=== PATIENT | female | born 1930 | race Caucasian/White ===

== ENCOUNTER 2018-06-07 15:56 | Emergency (ER) | payer MEDICARE ==
[2018-06-07 16:13] VITALS: TEMP 100.1
[2018-06-07] MEDS ORDERED: NEOMYCIN-BACITRACIN-POLYMYXIN 0.9 GM UD TOP ONE (16:14)
[2018-06-07] MEDS ORDERED: CHLORHEXIDINE GLUCONATE 4 % 15 ML UD TOP ONE (16:14)
--- NOTE | 2018-06-07 17:23 | CT ---
PROCEDURE: Cervical Spine CLINICAL HISTORY: 87 years Female fall [place] [facility] , abrasion to the right forehead COMPARISON: None. TECHNIQUE: Contiguous axial images obtained through the cervical spine without IV contrast. Coronal and sagittal reformatted images obtained. This exam was performed according to our department optimization program which includes automated exposure control, adjustment of the mA and/or kv according to patient size and/or use of iterative reconstruction technique. FINDINGS: There is retrolisthesis of C5 on C6. Narrowing of the C4-5 C5-6 and C6-7 disc interspaces. Facet arthropathy at multiple levels. Generalized bulging of the disc at C6-7 with mild central canal stenosis. IMPRESSION: No acute cervical spinal fracture is identified. Multilevel degenerative change Electronically signed by: Mariama Martin MD 06/07/2018 5:17 PM CDT
--- NOTE | 2018-06-07 17:23 | CT ---
PROCEDURE: Head CLINICAL HISTORY: 87 years Female fall with abrasion of the right forehead COMPARISON: None. TECHNIQUE: Contiguous axial CT images obtained through the brain without IV contrast. This exam was performed according to our department optimization program which includes automated exposure control, adjustment of the mA and/or kv according to patient size and/or use of iterative reconstruction technique. FINDINGS: The ventricles and sulci are prominent consistent with atrophic changes. There are areas of previous infarct in the left basal ganglia gazra radiata and frontal region with compensatory enlargement of the left lateral ventricle. Motion artifact limits evaluation. Significant streak artifact is present in the posterior and middle cranial fossa which limits evaluation. Microvascular ischemic changes. No midline shift or mass effect. No mass lesions. No acute hemorrhage. Atherosclerotic calcifications. No fluid or significant mucosal thickening in the visualized paranasal sinuses. No depressed calvarial fractures. IMPRESSION: Exam is limited by significant patient motion. No acute intracranial abnormality is identified. Generalized atrophy with microvascular ischemic changes. Areas of previous infarct in the left MCA distribution Electronically signed by: Mariama Martin MD 06/07/2018 5:19 PM CDT
--- NOTE | 2018-06-07 17:23 | RAD ---
EXAM DESCRIPTION: Elbow,Right 2 Views CLINICAL HISTORY: 87 years ,[place] [facility] ab[place]asion to the right forehead COMPARISON: None. TECHNIQUE: RIGHT elbow, Three view FINDINGS: No acute fractures or dislocations are identified. No osseous destructive lesions. No evidence of joint effusion. Nonspecific bony density along the medial epicondyle likely chronic area of calcification. IMPRESSION: No acute fractures are identified. If symptoms persist, followup is recommended in 7-10 days. Electronically signed by: Mariama Martin MD 06/07/2018 5:19 PM CDT
[2018-06-07 17:29] VITALS: O2SAT 97
--- NOTE | 2018-06-07 17:32 | ED.PDOC ---
History of Present Illness - General Chief Complaint: Trauma Stated Complaint: s/p fall Time Seen by Provider: 06/07/18 15:59 Source: patient Exam Limitations: clinical condition - History of Present Illness Initial Comments: the patient is an 87-year-old femalethat has advanced dementia and was actually found on the floor the prison with a small laceration to the forehead and a small skin tear to her right elbow. The patient is chronically essentially unable to communicate. She is pleasantly demented. She does have chronic mild contractures. She has right-sided weakness greater than left sided weakness. There does not appear to be any pain with palpation of her extremities or her pelvis or her chest wall. No pain is obvious with movement or palpation of the neck. She has about a 1-1/2 cm abrasion to her right upper forehead. No evidence of bony crepitus. She is alert. She is interactive. Again she is very pleasantly demented. Timing/Duration: momentarily Severity: mild Improving Factors: nothing Worsening Factors: nothing Allergies/Adverse Reactions: Allergies NO KNOWN ALLERGY Allergy (Verified 06/07/18 16:13) Review of Systems - Review of Systems Review of Systems: 06/07/18 17:31 unable to obtain secondary to dementia Past Medical History (General) - Patient Medical History Hx Stroke: Yes Hx Cardiac Disorders: Yes - Atrial fib Hx Congestive Heart Failure: Yes Hx Diabetes: No Hx Gastroesophageal Reflux: Yes Surgical History: noncontributory - Vaccination History Hx Influenza Vaccination: Yes - 05/18/18 - Activities of Daily Living Prison/Assisted Living (if applicable):: [facility] Family Medical History - Family History Mother Family History: Unknown Living Status: Physical Exam - Physical Exam General Appearance: Alert, Comfortable, No apparent distress Eye Exam: bilateral normal Ears, Nose, Throat: hearing grossly normal, normal pharynx Neck: non-tender, supple Respiratory: lungs clear, normal breath sounds, no respiratory distress, no accessory muscle use Cardiovascular/Chest: normal peripheral pulses, no edema, other - regular rate Peripheral Pulses: radial,right: 2+, radial,left: 2+, dorsalis pedis,right: 2+, dorsalis pedis,left: 2+ Gastrointestinal/Abdominal: non tender, soft Rectal Exam: deferred Extremity: normal range of motion - she does have chronic contractures but no acute changes since the fall are obvious, non-tender, no pedal edema, normal capillary refill Neurologic: public health program manager II-XII nml as tested, alert, normal mood/affect - pleasantly demented Skin Exam: normal color - small skin abrasion to the right elbow and slightly larger abrasion to the right upper forehead Comments: Vital Signs - 24 hr 06/07/18 06/07/18 16:05 17:28 Temperature 100.1 F H Pulse Rate [ 100 H 50 L Left Brachial] Respiratory 20 20 Rate Blood Pressure 105/59 107/79 [Left Arm] O2 Sat by Pulse 94 L 97 Oximetry Progress - Progress Progress: 06/07/18 17:33 the patient is an 87-year-old female with advanced dementia that presents from the prison after a fall. she has a abrasion to her right forehead along with a scalp hematoma and a skin tear that is small to the right elbow. These have been cleaned. CT scan of the head and cervical spine as well as x-ray of the right elbow show no evidence of any acute pathology though there are multiple chronic changes present. physical exam reveals no evidence of other deformity or discomfort otherwise. Fall precautions should obviously be taken with this patient. She does need to have her mental status monitored by the prison staff for the next couple of days. a concussion is possible with this patient but is difficult to tell at this time. The patient will be discharged back to her prison. No significant injury otherwise found. Departure - Departure Clinical Impression: Fall at prison Qualifiers: Encounter type: initial encounter Qualified Code(s): W19.XXXA - Unspecified fall, initial encounter; Y92.129 - Unspecified place in prison as the place of occurrence of the external cause; Y92.129 - Unspecified place in prison as the place of occurrence of the external cause Scalp hematoma Qualifiers: Encounter type: initial encounter Qualified Code(s): S00.03XA - Contusion of scalp, initial encounter Disposition: Discharge to SNF Condition: Fair Departure Forms: ED Discharge - Pt. Copy, Patient Portal Self Enrollment Diet: regular diet Activity: increase activity as tolerated Referrals: CONCHITA FORMAN [Primary Care Provider] - 1-5 Days Additional Instructions: the patient is an 87-year-old female with advanced dementia that presents from the prison after a fall. she has a abrasion to her right forehead along with a scalp hematoma and a skin tear that is small to the right elbow. These have been cleaned. CT scan of the head and cervical spine as well as x-ray of the right elbow show no evidence of any acute pathology though there are multiple chronic changes present. physical exam reveals no evidence of other deformity or discomfort otherwise. Fall precautions should obviously be taken with this patient. She does need to have her mental status monitored by the prison staff for the next couple of days. a concussion is possible with this patient but is difficult to tell at this time. The patient will be discharged back to her prison. No significant injury otherwise found.
[2018-06-07 18:33] VITALS: BP 151/59
== END 2018-06-07 18:20 ==
LOC: ER 15:56
DX: S00.93XA Contusion of unspecified part of head, initial encounter (principal); S00.81XA Abrasion of other part of head, initial encounter; S51.001A Unspecified open wound of right elbow, initial encounter; F03.90 Unspecified dementia, unspecified severity, without behavioral disturbance, psychotic disturbance, mood disturbance, and anxiety; M47.812 Spondylosis without myelopathy or radiculopathy, cervical region; K21.9 Gastro-esophageal reflux disease without esophagitis; I48.91 Unspecified atrial fibrillation; I50.9 Heart failure, unspecified; Z86.73 Personal history of transient ischemic attack (TIA), and cerebral infarction without residual deficits; W19.XXXA Unspecified fall, initial encounter; Y92.129 Unspecified place in nursing home as the place of occurrence of the external cause

== ENCOUNTER 2018-06-27 07:40 | Inpatient (IN) | payer MEDICARE ==
[2018-06-27] MEDS ORDERED: CEFEPIME 1 GM in SODIUM CHLORIDE 0.9% 50ML 50 ML IVPB ONE (08:03)
--- NOTE | 2018-06-27 08:08 | ED.PDOC ---
History of Present Illness - General Chief Complaint: Respiratory Problem Stated Complaint: Low O2 sats - 70s Time Seen by Provider: 06/27/18 08:01 Source: patient, EMS, shelter records Exam Limitations: physical impairment - dementia - History of Present Illness Initial Comments: patient is a shelter patient he was found this morning to have oxygen levels in the 70s on room air. Patient does not normally require oxygen and has no pulmonary diagnoses that she requires medication or treatment for. Staff from the shelter did say she been sick for a couple of days running fever but is afebrile this morning. Patient states she just doesn't feel well and has been coughing but denies any swelling or chest pain. Patient does not have any other complaints but is not very verbal secondary to her dementia. Timing/Duration: unsure Severity: moderate Improving Factors: nothing Worsening Factors: nothing Allergies/Adverse Reactions: Allergies NO KNOWN ALLERGY Allergy (Verified 06/27/18 08:03) Review of Systems - Review of Systems Constitutional: States: chills, fever, malaise EENTM: States: nose congestion. Denies: eye pain, ear pain, nose pain, throat swelling Respiratory: States: cough, short of breath. Denies: wheezing Cardiology: States: no symptoms reported. Denies: chest pain, palpitations, syncope Gastrointestinal/Abdominal: States: no symptoms reported. Denies: abdominal pain, diarrhea, nausea, vomiting Musculoskeletal: States: no symptoms reported Skin: States: no symptoms reported Neurological: States: no symptoms reported Past Medical History (General) - Patient Medical History Hx Stroke: Yes Hx Cardiac Disorders: Yes - Atrial fib Hx Congestive Heart Failure: Yes Hx Diabetes: No Hx Gastroesophageal Reflux: Yes - Vaccination History Hx Influenza Vaccination: Yes - 05/18/18 Family Medical History - Family History Mother Family History: Unknown Living Status: Physical Exam - Physical Exam General Appearance: Emaciated, Frail Eye Exam: bilateral normal Ears, Nose, Throat: hearing grossly normal, normal ENT inspection, normal pharynx Neck: non-tender, full range of motion, supple, normal inspection Respiratory: lungs clear, no accessory muscle use, decreased breath sounds Cardiovascular/Chest: no edema, no gallop, no JVD, no murmur, tachycardia, irregularly irregular Peripheral Pulses: radial,right: 2+, radial,left: 2+ Gastrointestinal/Abdominal: normal bowel sounds, non tender, soft Extremity: non-tender Neurologic: alert Skin Exam: cyanosis Progress - Progress Progress: 06/27/18 09:59 patient with probable sepsis from pneumonia. Chest xray is negative but symptoms and lactic acid are concerning for early pneumonia. Have stated antibiotics here and have called and discussed with [employer] neurosurgeon Ziggy Santiago. He will admit - Results/Orders Results/Orders: 06/27/18 08:15 EKG STAT 06/27/18 09:22 BLOOD CULTURE Stat Laboratory Results WBC 9.1 K/mm3 (4.8-10.8) 06/27/18 09:22 RBC 4.04 M/mm3 (4.20-5.40) L 06/27/18 09:22 Hgb 12.4 gm/dL (12.0-16.0) 06/27/18 09:22 Hct 38.1 % (36.0-47.0) 06/27/18 09:22 MCV 94.5 fl (81.0-99.0) 06/27/18 09:22 MCH 30.6 pg (27.0-31.0) 06/27/18 09:22 MCHC 32.6 g/dL (33.0-37.0) L 06/27/18 09:22 RDW 16.2 % (11.5-14.5) H 06/27/18 09:22 Plt Count 443 K/mm3 (130-400) H 06/27/18 09:22 MPV 7.7 fl (7.40-10.4) 06/27/18 09:22 Absolute Neuts (auto) 7.10 K/uL (1.8-6.8) H 06/27/18 09:22 Absolute Lymphs (auto) 0.90 K/uL (1.0-3.4) L 06/27/18 09:22 Absolute Monos (auto) 1.00 K/uL (0.2-0.8) H 06/27/18 09:22 Absolute Eos (auto) 0.10 K/uL (0.0-0.4) 06/27/18 09:22 Absolute Basos (auto) 0.10 K/uL (0.0-0.1) 06/27/18 09:22 Neutrophils % 77.3 % (42.0-78.0) 06/27/18 09:22 Lymphocytes % 9.8 % (20.0-50.0) L 06/27/18 09:22 Monocytes % 10.9 % (2.0-9.0) H 06/27/18 09:22 Eosinophils % 1.4 % (1.0-5.0) 06/27/18 09:22 Basophils % 0.6 % (0.0-2.0) 06/27/18 09:22 PT 11.5 SECONDS (9.0-10.9) H 06/27/18 09:22 INR 1.15 (0.9-1.15) 06/27/18 09:22 PTT (SP) 27.0 SECONDS (21.8-31.6) 06/27/18 09:22 pCO2 31 mmHg (32-45) L 06/27/18 08:20 pO2 108 mmHg (83-108) 06/27/18 08:20 HCO3 24.8 mmol/L 06/27/18 08:20 ABG pH 7.520 (7.35-7.45) H 06/27/18 08:20 ABG O2 Saturation 99.3 % (95.0-99.0) H 06/27/18 08:20 ABG Base Excess 2.7 mmol/L 06/27/18 08:20 ABG Deoxyhemoglobin 0.7 % (0.0-5.0) 06/27/18 08:20 Oxyhemoglobin % 98.3 % (94.0-98.0) H 06/27/18 08:20 Carboxyhemoglobin % 0.6 % (0.5-1.5) 06/27/18 08:20 Methemoglobin % Sat 0.5 % (0.0-1.5) 06/27/18 08:20 Calc Total Hemoglobin 11.3 g/dL (12.0-16.0) L 06/27/18 08:20 Sodium 130 mmol/L (135-145) L 06/27/18 09:22 Potassium 4.1 mmol/L (3.6-5.0) 06/27/18 09:22 Chloride 93 mmol/L (101-111) L 06/27/18 09:22 Carbon Dioxide 26 mmol/L (21-31) 06/27/18 09:22 Anion Gap 15.1 (12-18) 06/27/18 09:22 BUN 24 mg/dL (7-18) H 06/27/18 09:22 Creatinine 0.83 mg/dL (0.6-1.3) 06/27/18 09: BUN/Creatinine Ratio 28.9 (10-20) H 06/27/18 09:22 Random Glucose 85 mg/dL (70-105) 06/27/18 09: Serum Osmolality 264.1 mOsm/L (275-295) L 06/27/18 09:22 Lactic Acid 2.3 mmol/L (0.5-2.2) H 06/27/18 09:22 Calcium 9.1 mg/dL (8.4-10.2) 06/27/18: Total Bilirubin 0.6 mg/dL (0.2-1.0) 06/27/18: AST 33 IU/L (10-42) 06/27/18: ALT 20 IU/L (10-60) 06/27/18 09:22 Alkaline Phosphatase 87 IU/L (42-121) 06/27/18 09:22 Creatine Kinase 31 IU/L (26-140) 06/27/18 09: CK-MB (CK-2) 1.3 ng/mL (0.0-4.4) 06/27/18 09: CK-MB (CK-2) % Not Reportable 06/27/18: Troponin I < 0.02 ng/mL (0.01-0.05) 06/27/18: B-Natriuretic Peptide 513.0 pg/ml (0-100) H* 06/27/18: Serum Total Protein 7.9 gm/dL (6.4-8.2) 06/27/18 09:22 Albumin 2.6 g/dl (3.2-5.5) L 06/27/18:22 Globulin 5.3 gm/dL (2.3-3.5) H 06/27/18 09:22 Albumin/Globulin Ratio 0.5 (1.1-1.9) L 06/27/18 09:22 chest xray negative acute process EKG atrial fib with rapid ventricular rate Departure - Departure Clinical Impression: Pneumonia Qualifiers: Pneumonia type: due to unspecified organism Laterality: unspecified laterality Lung location: unspecified part of lung Qualified Code(s): J18.9 - Pneumonia, unspecified organism Disposition: Admit Patient Condition: Fair Departure Forms: ED Discharge - Pt. Copy, Patient Portal Self Enrollment Diet: regular diet Referrals: CONCHITA FORMAN [Primary Care Provider] - 1-2 Weeks
--- NOTE | 2018-06-27 08:38 | RAD ---
PROCEDURE: XR CHEST 1 VIEW HISTORY: hypoxia COMPARISON: 06/26/2018 TECHNIQUE: Single projection of the chest was done. FINDINGS: Underlying changes of COPD are seen . There are no discrete airspace infiltrates, pneumothoraces or pleural effusions. The pulmonary vascularity is normal. The cardiomediastinal silhouette is unremarkable for patient's age and sex. IMPRESSION: There is no acute pleural-parenchymal process seen in the imaged lung soto. Location of Interpretation: Teleradiology Electronically signed by: Gilmar Ledbetter MD 06/27/2018 8:36 AM [facility] [employer] Workstation: [id number]
[2018-06-27] MEDS ORDERED: CEFEPIME 2 GM VIAL ONE (09:17)
[2018-06-27] MEDS ORDERED: SODIUM CHLORIDE 0.9% 50ML 50 ML ONE (09:18)
--- NOTE | 2018-06-27 11:00 | HP ---
SUPERVISING PHYSICIAN: Jack Avelar M.D. CHIEF COMPLAINT: Low O2 saturations. HISTORY OF PRESENT ILLNESS: Ms. Jane is an 87 year-old female patient that resides at [facility]. This morning, she was found by the assisted to be with low O2 saturation of less than 70 on room air. She is not normally on oxygen and has no significant history of pulmonary disease. It is noted that the patient is nonverbal and the majority of the history was obtained from E. R. record and assisted report. The assisted reports that the patient had been sick for a couple of days running fever and a cough, but had denied any chest pains. She was started on Levaquin yesterday. Today in the Emergency Department vital signs showed that she was febrile with a temperature of 100.2, pulse 138, blood pressure 109/40, respirations 18, satting 85% on room air. On nasal cannula, she went up to 93% . She does have a history of atrial fibrillation and is on a beta becky for rate control with no anticoagulant. Chest x-ray, single view chest, per radiology interpretation showed pulmonary vasculature to be within normal limits and no discrete airspace infiltrates or pleural effusions on the single view chest. Laboratory studies showed she had a white count that was within normal limits at 9,100 but she did have a left shift. Blood gas analysis showed a pH of 7.520, satting 99% on 4 liters nasal cannula with pO2 of 31, pCO2 of 31, pO2 108, bicarb 24.8. Chemistries showed a mild hyponatremia with sodium 130, creatinine 0.39, lactic acid was elevated at 2.3. Liver functions all showed to be within normal limits. Troponin was less than 0.02, BNP was elevated at 513. She does have a history of congestive heart failure but no echocardiogram is available for review at time of admission. Given the clinical findings of room air hypoxia and recent treatment for upper respiratory infection concerning for possible developing pneumonia likely hospital acquired as she does reside at a [facility] care facility, Dr. Deleon, E. R. physician, started her on treatment for pneumonia with Cefipime after blood cultures were completed. The patient is now going to be admitted to the Medical/Surgical floor for ongoing treatment of probable developing early pneumonia, hospital acquired, with the patient having failed to respond to outpatient treatment measures. She was admitted in stable condition. PAST MEDICAL HISTORY: 1. Previous stroke, residual effects including aphasia. 2. Chronic atrial fibrillation on beta becky for rate control but no chronic anticoagulation. 3. Chronic congestive heart failure likely diastolic with no current echocardiogram available for review at time of admission. 4. Gastroesophageal reflux disease. 5. Rheumatoid polyneuropathy with rheumatoid arthritis. 6. Osteoporosis. 7. History of hyperlipidemia. PAST SURGICAL HISTORY: Not available as the patient is nonverbal and no surgeries listed on assisted notes. HOME MEDICATIONS: Please see an updated list in the electronic medical records of an updated, verified list by nursing staff at time of admission awaiting verification from the assisted. ALLERGIES: NO KNOWN DRUG ALLERGIES. FAMILY HISTORY: SOCIAL HISTORY: REVIEW OF SYSTEMS: Limited to the patient's aphasia. CONSTITUTIONAL: She denied any chills, fever, malaise. HEENT: She is reported by the assisted to have some nasal congestion. The patient has not noted any ear pain, nose or throat problems. RESPIRATORY: As noted in history of present illness, shortness of breath, worsening cough, but denies any wheezing. CARDIOVASCULAR: The patient denies by head nod, chest pains, palpitations. No reported syncopal episodes. She does have a history of atrial fibrillation. GASTROINTESTINAL: No reported problems such as abdominal pains, diarrhea, nausea or vomiting. MUSCULOSKELETAL: She has chronic mild contractures of the upper and lower extremities. INTEGUMENT: No reported skin breakdown, rashes or sores. NEUROLOGIC: The patient is aphasic. Essentially non-ambulatory but no reported change in mental status per assisted. PHYSICAL EXAMINATION: VITAL SIGNS: Temperature 100.2, pulse 126, blood pressure 110/73, respirations 20, satting 92% on nasal cannula at 2 liters. Initially before placement on nasal cannula, she was satting 85% on room air. Admission weight 44.1 kg. GENERAL: The patient is very thin, emaciated. Appears to be somewhat dehydrated and frail, in no acute obvious distress. HEENT: Tympanic membranes were clear bilaterally. Oropharynx was pink with dry mucosal membranes. NECK: Supple, non-tender with full range of motion. No jugular venous distention. CHEST: Lung sounds were fairly clear with no obvious wheezing or rhonchi, slightly diminished towards the bases. CARDIOVASCULAR: Irregular rate and rhythm showing atrial fibrillation on bedside monitor at 126. No murmurs, gallops, or rubs noted. ABDOMEN: Bowel sounds are present, non-tender, soft. EXTREMITIES: Slight contracture of upper and lower extremities, but she does move all extremities ad yanelis. NEUROLOGIC: She is alert. Full neurological exam is difficult to obtain due to the patient's aphasia and inability to follow full instructions on neurological assessment, but no obvious gross motor deficits noted. Facial features were symmetrical. Extraocular movements are intact. were within normal limits. There is no notable nystagmus. SKIN: Warm, pink and dry with no obvious lesions, rashes, sores or decubitus. LABORATORY: CBC showed white count 9,100, hemoglobin 12.4, hematocrit 38.1. RBC indices showed normocytic/normochromic presentation. Platelet count 443, 000. Differential does show a left shift but no bands. Coagulation studies showed PT and PTT to be within normal limits. Blood gas analysis showed a respiratory alkalosis with pH of 7.52, pCO2 of 31, pO2 of 108, bicarb 24.8 with base excess 2.7, satting 99% on 4 liters nasal cannula. Chemistries showed low sodium at 130, potassium 4.1, BUN 24, creatinine 0.83, glucose 85. Lactic acid was elevated at 2.3 with calcium 9.3. Liver functions showing all to be within normal limits. Troponin was less than 0.02. BNP was elevated at 513. Urinalysis was pending. MICROBIOLOGY: Blood culture is pending. Sputum culture is pending. Influenza swab by PCR for A and B was negative. RADIOLOGY: Chest x-ray single view chest on admission through the E. R. per radiology interpretation showed no acute pleural or parenchymal processes in the imaged lung soto of a single view chest. ASSESSMENT: 1. Sepsis secondary to probable developing early pneumonia with the patient having an elevated lactic acid and fever on admission with tachycardia and low O2 saturations, and elevated lactic acid. 2. Hypoxia probably due to early pneumonia more likely healthcare acquired with the patient having been a resident of long-term care facility and previously being on recent antibiotics having failed to respond to outpatient treatment plan now requiring initiation of parenteral antibiotics and more aggressive antibiotic regimen. 3. Chronic congestive heart failure likely diastolic with no echocardiogram to review at time of admission with the patient showing an elevated BNP probably falsely elevated due to dehydration. 4. Electrolyte imbalance to include hyponatremia probably chronic in nature due to the patient being on chronic diuretics to include Hydrochlorothiazide and Spironolactone, and exacerbated by developing pneumonia. 5. Moderate dehydration. 6. Respiratory alkalosis likely due to aggressive administration of oxygen prior to hospitalization with the patient showing some compensation. 7. Urinary tract infection with cultures pending. 8. Chronic atrial fibrillation on beta becky with rapid ventricular response on admission likely due to acute illness with the patient not being on any chronic anticoagulation but showing to be hemodynamically stable. 9. Gastroesophageal reflux disease. 10. History of polyneuropathy with rheumatoid arthritis. 11. History of osteoporosis. 12. History of hyperlipidemia. PLAN: The patient is going to be admitted to the Medical/Surgical floor for ongoing treatment of her hypoxia and sepsis with initiation of antibiotics to include Cefepime, Zyvox and azithromycin with concerns for possible healthcare acquired pneumonia as she does reside at a long-term care facility. Will treat her urinary tract infection with continuation of the same antibiotics including the Cefepime which should cover well, awaiting final culture results to target antibiotic therapy. Will await sputum cultures. She will be on DVT prophylaxis as per protocol. Will resume her home medications once those have been updated and verified as appropriate. Will anticipate her length of stay to be at least 2 to 3 days. Until clinically stable and can transition back to outpatient management, will continue to monitor and treat as needed. #[id number] [facility]
[2018-06-27] MEDS ORDERED: ALBUTEROL SULFATE 2.5 MG/3 ML VIAL NEB PRN (12:21)
[2018-06-27] MEDS ORDERED: SODIUM CHLORIDE 0.9% (FLUSH) 10 ML SYG IV PRN (12:21)
[2018-06-27] MEDS: IV SET AND CAP CHANGE INJ INJ SCH (12:30)
[2018-06-27] MEDS ORDERED: SODIUM CHLORIDE 0.9% 250ML 250 ML ONE (13:03)
[2018-06-27] MEDS ORDERED: AZITHROMYCIN IV 500 MG VIAL IVPB ONE (13:04)
[2018-06-27] MEDS: AZITHROMYCIN IV 500 MG in SODIUM CHLORIDE 0.9% 250ML 250 ML IVPB SCH (13:32)
[2018-06-27] MEDS ORDERED: SODIUM CHLORIDE 0.9% 500ML 500 ML IVS ONE (13:57)
[2018-06-27] MEDS ORDERED: SODIUM CHLORIDE 0.9% 500ML 500 ML ONE (14:25)
[2018-06-27] MEDS ORDERED: LINEZOLID IV 300 ML IVPB ONE (14:26)
[2018-06-27] MEDS ORDERED: NON-FORMULARY MEDICATION 1 EA MIS (Bisoprolol Fumarate [Bisoprolol Fumarate] 5 MG) PO SCH (14:45)
[2018-06-27] MEDS: METOPROLOL SUCCINATE XL 50 MG TAB PO SCH (15:26)
[2018-06-27] MEDS: ACETAMINOPHEN 325 MG TAB PO PRN (15:28)
[2018-06-27] MEDS: ENOXAPARIN SODIUM 30 MG/0.3 ML SYG SUBCU SCH (15:30)
[2018-06-27] MEDS: LINEZOLID IV 600 MG in PREMIX BAG 1 BAG IVPB SCH (15:58)
[2018-06-27] MEDS: LEVALBUTEROL NEBS 1.25 MG/3 ML VIAL NEB SCH (16:10)
[2018-06-27] MEDS ORDERED: SODIUM CHLORIDE 0.9% 1000ML 1,000 ML IVS ONE (17:52)
[2018-06-27] MEDS ORDERED: PANTOPRAZOLE SODIUM IV 40 MG VIAL ONE (19:26)
[2018-06-27] MEDS: PRAVASTATIN SODIUM 20 MG TAB PO SCH (20:38)
[2018-06-27] MEDS: KCL 20 MEQ/NS 1,000 ML IVS PRN (22:10)
[2018-06-28] MEDS: LEVALBUTEROL NEBS 1.25 MG/3 ML VIAL NEB SCH ×4 (00:15→23:50)
[2018-06-28] MEDS ORDERED: LINEZOLID IV 300 ML IVPB ONE ×3 (04:05→19:50)
[2018-06-28] MEDS: LINEZOLID IV 600 MG in PREMIX BAG 1 BAG IVPB SCH ×2 (04:07→16:36)
[2018-06-28] MEDS: PANTOPRAZOLE SODIUM IV 40 MG VIAL IV SCH (06:15)
[2018-06-28] MEDS ORDERED: SODIUM CHLORIDE 0.9% 250ML 250 ML ONE (07:16)
[2018-06-28] MEDS ORDERED: SODIUM CHL 0.9% 50ML MIN-BAG+ 50 ML IVPB ONE (07:17)
[2018-06-28] MEDS ORDERED: CEFEPIME 2 GM VIAL ONE (07:17)
[2018-06-28] MEDS ORDERED: AZITHROMYCIN IV 500 MG VIAL IVPB ONE (07:18)
--- NOTE | 2018-06-28 07:47 | RAD ---
EXAM DESCRIPTION: AP view of the chest CLINICAL HISTORY:87 years Female, Pneumonia Comparison: June 27, 2018 8:23 AM FINDINGS: Minimal left basilar subsegmental atelectasis, new from prior study. Diffuse prominence of the pulmonary interstitium likely related to chronic lung disease. No pleural abnormalities. The cardiac silhouette is normal size. IMPRESSION: Left basilar subsegmental atelectasis. Electronically signed by: Magdaleno Wall DO 06/28/2018 7:45 AM [facility]
[2018-06-28] MEDS: ONDANSETRON INJ 4 MG/2 ML VIAL IV PRN (07:52)
[2018-06-28] MEDS: CEFEPIME 2 GM in SODIUM CHL 0.9% 50ML MIN-BAG+ 50 ML IVPB SCH (08:50)
[2018-06-28] MEDS: SPIRONOLACTONE 25 MG TAB PO SCH (08:51)
[2018-06-28] MEDS: FUROSEMIDE 40 MG TAB PO SCH (08:51)
[2018-06-28] MEDS: ASPIRIN (ENTERIC COATED) 81 MG TAB PO SCH (08:51)
[2018-06-28] MEDS: METOPROLOL SUCCINATE XL 50 MG TAB PO SCH (08:51)
[2018-06-28] MEDS: ENOXAPARIN SODIUM 30 MG/0.3 ML SYG SUBCU SCH (08:51)
[2018-06-28] MEDS: AZITHROMYCIN IV 500 MG in SODIUM CHLORIDE 0.9% 250ML 250 ML IVPB SCH (12:47)
[2018-06-28] MEDS: KCL 20 MEQ/NS 1,000 ML IVS PRN (14:51)
--- NOTE | 2018-06-28 17:34 | PN ---
DATE: 06/28/18 SUPERVISING PHYSICIAN: Jack Avelar M.D. SUBJECTIVE: The patient is lying in bed. She nods her head yes and no, not always appropriately but she does not speak. Nursing has reported that she had a good night last night. She has not been in any distress today. OBJECTIVE: VITAL SIGNS: She is afebrile, heart rate 100, blood pressure 118/71 , respiratory rate 17, O2 sat has been as low at 88% on 2 liters nasal cannula, it is now 91%. RESPIRATORY: Diminished at the bases but essentially clear to auscultation bilaterally. CARDIAC: Regular rate and rhythm. At times she is tachycardic. GASTROINTESTINAL: Abdomen is soft, nondistended. Bowel sounds are positive. NEUROLOGIC: She is awake and alert. She is aphasic, does not verbally respond to any questions. LABORATORY: WBCs are 6.9 with hemoglobin 10.8 and hematocrit 37.7. There is a slight left shift on differential. Sodium is slightly low at 134. Calcium is 8.3 but the remainder of her electrolytes are basically within normal limits. Preliminary blood cultures show no growth after 24 hours. Urine culture is pending. Chest x-ray shows left basilar subsegmental atelectasis. All other labs and films have been reviewed via the EMR. ASSESSMENT: 1. Sepsis secondary to early pneumonia, most likely healthcare acquired, with the patient having an elevated lactic acid and fever on admission as well as tachycardia and low O2 saturations. 2. Hypoxia probably due to the pneumonia, most likely healthcare acquired. The patient has been a resident of long-term care facility and was previously on recent antibiotics having failed to respond to outpatient treatment. She now is on parenteral antibiotics with more aggressive antibiotic regimen. 3. Chronic congestive heart failure likely diastolic in etiology with no echocardiogram to review. 4. Electrolyte imbalance to include hyponatremia probably chronic in nature being on chronic diuretics. 5. Moderate dehydration. 6. Respiratory alkalosis. 7. Urinary tract infection. PLAN: We will continue present supportive care. Continue her present antibiotics until cultures are available. I will hold off on any lab or chest x -ray tomorrow and will repeat those on Friday. Continue with aggressive pulmonary hygiene. Will continue to monitor closely and follow as needed. [facility][id number] [facility]
[2018-06-28] MEDS: PRAVASTATIN SODIUM 20 MG TAB PO SCH (21:25)
[2018-06-29] MEDS: LINEZOLID IV 600 MG in PREMIX BAG 1 BAG IVPB SCH ×2 (04:19→16:37)
[2018-06-29] MEDS: PANTOPRAZOLE SODIUM IV 40 MG VIAL IV SCH (06:28)
[2018-06-29] MEDS: KCL 20 MEQ/NS 1,000 ML IVS PRN ×2 (06:35→19:31)
[2018-06-29] MEDS: LEVALBUTEROL NEBS 1.25 MG/3 ML VIAL NEB SCH ×2 (08:24→16:32)
[2018-06-29] MEDS ORDERED: SODIUM CHL 0.9% 50ML MIN-BAG+ 50 ML IVPB ONE (09:05)
[2018-06-29] MEDS ORDERED: CEFEPIME 2 GM VIAL ONE (09:06)
[2018-06-29] MEDS ORDERED: DEX 5% W/NACL 0.45% 1000ML 1,000 ML IVS PRN (09:43)
[2018-06-29] MEDS: ASPIRIN (ENTERIC COATED) 81 MG TAB PO SCH (09:50)
[2018-06-29] MEDS: SPIRONOLACTONE 25 MG TAB PO SCH (09:50)
[2018-06-29] MEDS: ENOXAPARIN SODIUM 30 MG/0.3 ML SYG SUBCU SCH (09:50)
[2018-06-29] MEDS: FUROSEMIDE 40 MG TAB PO SCH (09:50)
[2018-06-29] MEDS: METOPROLOL SUCCINATE XL 50 MG TAB PO SCH (09:51)
[2018-06-29] MEDS: CEFEPIME 2 GM in SODIUM CHL 0.9% 50ML MIN-BAG+ 50 ML IVPB SCH (09:59)
--- NOTE | 2018-06-29 13:37 | PN ---
SUPERVISING PHYSICIAN: Jack Avelar M.D. DATE: 06/29/18 SUBJECTIVE: The patient is lying in bed. She is very pleasant, but she is nonverbal. She does shake her head yes and no to some simple questioning. Nursing has reported that other than her heart rate being up in the 100s to 1- teens, she has had no problems overnight. OBJECTIVE: VITAL SIGNS: Afebrile. Heart rate 113. Blood pressure 103/65. Respiratory rate 16. O2 saturation 94% on 1 liter nasal cannula. RESPIRATORY: Diminished at the bases with a few scattered rhonchi, otherwise clear to auscultation. CARDIAC: Regular rate and rhythm. At times, she is slightly tachycardic. GASTROINTESTINAL: Abdomen is soft, nondistended. Bowel sounds are positive. NEUROLOGIC: She is awake and alert, but nonverbal. LABORATORY: Preliminary blood cultures show no growth after 48 hours. All other labs and films have been reviewed via the EMR. ASSESSMENT: 1. Sepsis secondary to early pneumonia, most likely healthcare acquired, with the patient having an elevated lactic acid and fever on admission as well as tachycardia and low O2 saturations. 2. Hypoxia probably due to the pneumonia, most likely healthcare acquired. The patient has been a resident of [facility] and was previously on recent antibiotics having failed to respond to outpatient treatment. She now is on parenteral antibiotics with more aggressive antibiotic regimen. 3. Chronic congestive heart failure likely diastolic in etiology with no echocardiogram to review. 4. Electrolyte imbalance to include hyponatremia probably chronic in nature being on chronic diuretics. 5. Moderate dehydration. 6. Respiratory alkalosis. 7. Urinary tract infection. PLAN: We will continue present supportive care. She is slightly improving over the last 24 hours. Since her heart rate is elevated, I will give her an additional one liter of fluids and continue her previous antibiotics. We are awaiting culture results. I ordered lab and chest x-ray for in the morning. We will continue pulmonary hygiene. Hopefully she can be discharged tomorrow to [facility]. #[id number] [facility]
[2018-06-29] MEDS ORDERED: AZITHROMYCIN IV 500 MG VIAL IVPB ONE (13:52)
[2018-06-29] MEDS ORDERED: SODIUM CHLORIDE 0.9% 250ML 250 ML ONE (13:52)
[2018-06-29] MEDS: AZITHROMYCIN IV 500 MG in SODIUM CHLORIDE 0.9% 250ML 250 ML IVPB SCH (14:16)
[2018-06-29] MEDS ORDERED: LINEZOLID IV 300 ML IVPB ONE ×2 (17:33→20:13)
[2018-06-29] MEDS ORDERED: PANTOPRAZOLE SODIUM TAB 40 MG PO ONE (20:14)
[2018-06-29] MEDS: PRAVASTATIN SODIUM 20 MG TAB PO SCH (20:43)
[2018-06-30] MEDS: LEVALBUTEROL NEBS 1.25 MG/3 ML VIAL NEB SCH ×3 (00:05→16:30)
[2018-06-30] MEDS: ACETAMINOPHEN 325 MG TAB PO PRN (02:42)
[2018-06-30] MEDS: LINEZOLID IV 600 MG in PREMIX BAG 1 BAG IVPB SCH ×2 (03:44→16:27)
[2018-06-30] MEDS: PANTOPRAZOLE SODIUM TAB 40 MG PO SCH (06:37)
--- NOTE | 2018-06-30 07:03 | RAD ---
EXAM DESCRIPTION: Chest,1 View CLINICAL HISTORY:87 years Female, pna Comparison: June 28, 2018 FINDINGS: Improved aeration left lung base with minimal bibasilar opacities No pleural effusion. No pneumothorax. Cardiac and mediastinal silhouette is unremarkable. No acute osseous abnormality. Soft tissues are unremarkable. IMPRESSION: Minimal bibasilar opacities representing atelectasis or pneumonia, improved from prior. Electronically signed by: Surya Rangel MD 06/30/2018 7:01 AM [facility]
[2018-06-30] MEDS ORDERED: SODIUM CHL 0.9% 50ML MIN-BAG+ 50 ML IVPB ONE (07:38)
[2018-06-30] MEDS ORDERED: CEFEPIME 2 GM VIAL ONE (07:39)
[2018-06-30] MEDS ORDERED: MAGNESIUM SULFATE PREMIX 2GM 2 GM in PREMIX BAG 1 BAG IVPB ONE (08:18)
[2018-06-30] MEDS ORDERED: MAGNESIUM SULFATE PREMIX 2GM 50 ML IVPB ONE (08:52)
[2018-06-30] MEDS: FUROSEMIDE 40 MG TAB PO SCH (09:07)
[2018-06-30] MEDS: SPIRONOLACTONE 25 MG TAB PO SCH (09:07)
[2018-06-30] MEDS: ASPIRIN (ENTERIC COATED) 81 MG TAB PO SCH (09:08)
[2018-06-30] MEDS: ENOXAPARIN SODIUM 30 MG/0.3 ML SYG SUBCU SCH (09:08)
[2018-06-30] MEDS: METOPROLOL SUCCINATE XL 50 MG TAB PO SCH (09:08)
[2018-06-30] MEDS: MEGESTROL ACETATE 40 MG TAB PO SCH (09:21)
[2018-06-30] MEDS: CEFEPIME 2 GM in SODIUM CHL 0.9% 50ML MIN-BAG+ 50 ML IVPB SCH (10:01)
[2018-06-30] MEDS: KCL 20 MEQ/NS 1,000 ML IVS PRN (12:12)
[2018-06-30] MEDS: IV SET AND CAP CHANGE INJ INJ SCH (12:32)
[2018-06-30] MEDS: AZITHROMYCIN IV 500 MG in SODIUM CHLORIDE 0.9% 250ML 250 ML IVPB SCH (12:58)
[2018-06-30] MEDS ORDERED: SODIUM CHLORIDE 0.9% 250ML 250 ML ONE (13:34)
[2018-06-30] MEDS ORDERED: AZITHROMYCIN IV 500 MG VIAL IVPB ONE (13:34)
[2018-06-30] MEDS ORDERED: LINEZOLID IV 300 ML IVPB ONE (16:26)
--- NOTE | 2018-06-30 19:21 | PN ---
DATE: 06/30/18 SUPERVISING PHYSICIAN: Jack Avelar M.D. SUBJECTIVE: The patient is sitting in her hospital bed. She is having a breathing treatment. She is more verbal today than yesterday. She answers some simple yes/no questions. It is reported from nursing that she is doing some better but still coughing quite a bit. OBJECTIVE: VITAL SIGNS: She is afebrile, heart rate 98, it has been as high as 114. Blood pressure 97/59, respiratory rate 20, O2 sat 96% on 1 liter nasal cannula. RESPIRATORY: Diminished breath sounds throughout. Diffuse scattered rhonchi. CARDIAC: Regular to tachycardic rate, irregular rhythm. GASTROINTESTINAL: Abdomen is soft, nondistended, non-tender. Bowel sounds are positive. NEUROLOGIC: She is awake and alert. LABORATORY: WBCs are stable at .6 with hemoglobin 10.2, hematocrit 31.1. Sodium is slightly low at 130, potassium 3.7, chloride 96, glucose 133, calcium is slightly low at 8, magnesium is low at 1.7. Anaerobic blood culture shows gram positive cocci in pairs and clusters. Chest x-ray shows minimal bibasilar opacities representing atelectasis or pneumonia that is improved from prior. All other labs and films have been reviewed via the EMR. ASSESSMENT: 1. Sepsis secondary to early pneumonia, most likely healthcare acquired, with the patient having an elevated lactic acid and fever on admission as well as tachycardia and low O2 saturations. 2. Hypoxia probably due to the pneumonia, most likely healthcare acquired. The patient has been a resident of [facility] facility and was previously on recent antibiotics having failed to respond to outpatient treatment. She now is on parenteral antibiotics with more aggressive antibiotic regimen. 3. Chronic congestive heart failure likely diastolic in etiology with no echocardiogram to review. 4. Electrolyte imbalance to include hyponatremia probably chronic in nature being on chronic diuretics. 5. Moderate dehydration. 6. Respiratory alkalosis. 7. Urinary tract infection. PLAN: We will continue present supportive care. Will continue to wait for the final blood cultures to guide antibiotic therapy. I have given her some magnesium replacement. Will recheck her lab in the morning. I have also started some Megace as the patient is not eating. I have also saline locked her IV. Will continue to monitor closely and follow as needed. Hopefully we can discharge tomorrow back to [facility] with close followup with Dr. Vazquez. [facility][id number] [facility]
[2018-06-30] MEDS: PRAVASTATIN SODIUM 20 MG TAB PO SCH (20:46)
[2018-07-01] MEDS: LEVALBUTEROL NEBS 1.25 MG/3 ML VIAL NEB SCH ×4 (00:06→23:30)
[2018-07-01] MEDS ORDERED: LINEZOLID IV 300 ML IVPB ONE ×2 (03:24→16:08)
[2018-07-01] MEDS: LINEZOLID IV 600 MG in PREMIX BAG 1 BAG IVPB SCH ×2 (04:11→16:21)
[2018-07-01] MEDS: KCL 20 MEQ/NS 1,000 ML IVS PRN (05:02)
[2018-07-01] MEDS: PANTOPRAZOLE SODIUM TAB 40 MG PO SCH (06:14)
[2018-07-01] MEDS ORDERED: SODIUM CHL 0.9% 50ML MIN-BAG+ 50 ML IVPB ONE (08:29)
[2018-07-01] MEDS ORDERED: CEFEPIME 2 GM VIAL ONE (08:30)
[2018-07-01] MEDS: ASPIRIN (ENTERIC COATED) 81 MG TAB PO SCH (08:37)
[2018-07-01] MEDS: MEGESTROL ACETATE 40 MG TAB PO SCH (08:38)
[2018-07-01] MEDS: METOPROLOL SUCCINATE XL 50 MG TAB PO SCH (08:38)
[2018-07-01] MEDS: FUROSEMIDE 40 MG TAB PO SCH (08:38)
[2018-07-01] MEDS: SPIRONOLACTONE 25 MG TAB PO SCH (08:38)
[2018-07-01] MEDS: ENOXAPARIN SODIUM 30 MG/0.3 ML SYG SUBCU SCH (08:39)
[2018-07-01] MEDS: CEFEPIME 2 GM in SODIUM CHL 0.9% 50ML MIN-BAG+ 50 ML IVPB SCH (08:40)
[2018-07-01] MEDS ORDERED: FUROSEMIDE INJ 20 MG/2 ML VIAL IV ONE (09:03)
[2018-07-01] MEDS: AZITHROMYCIN IV 500 MG in SODIUM CHLORIDE 0.9% 250ML 250 ML IVPB SCH (12:23)
[2018-07-01] MEDS ORDERED: FLUCONAZOLE 150 MG TAB PO ONE (12:57)
[2018-07-01] MEDS: BIFIDOBACTERIUM INFANTIS 4 MG CAP PO SCH (13:54)
[2018-07-01] MEDS: PRAVASTATIN SODIUM 20 MG TAB PO SCH (20:59)
[2018-07-01] MEDS: ACETAMINOPHEN 325 MG TAB PO PRN (22:23)
[2018-07-02] MEDS: KCL 20 MEQ/NS 1,000 ML IVS PRN (00:29)
[2018-07-02] MEDS ORDERED: LINEZOLID IV 300 ML IVPB ONE ×3 (03:05→19:33)
[2018-07-02] MEDS: LINEZOLID IV 600 MG in PREMIX BAG 1 BAG IVPB SCH ×2 (03:33→16:30)
[2018-07-02] MEDS: PANTOPRAZOLE SODIUM TAB 40 MG PO SCH (06:07)
[2018-07-02] MEDS: LEVALBUTEROL NEBS 1.25 MG/3 ML VIAL NEB SCH ×2 (07:56→16:38)
--- NOTE | 2018-07-02 08:43 | PN ---
SUPERVISING PHYSICIAN: Jack Avelar MD DATE: 07/01/18 SUBJECTIVE: The patient is resting in the bed. She does not verbalize, but she shakes her yes and no and notes this morning that she is not feeling very well. She denies any specific pains, but she has had some nausea apparently and has been afebrile. OBJECTIVE: VITAL SIGNS: Temperature 97.6. Pulse 72. Blood pressure 104/73. Respirations 16. Saturation 94% on nasal cannula at rest on 1 liter. I&Os this morning showed positive balance of 1660 with 3660 in, 1700 out. She has had 2 bowel movements and weight is slightly up from yesterday to 43.8 kg. GENERAL: The patient is resting in bed. She appears to be in no acute distress. She is alert. CHEST: Lung sounds are diminished towards the bases. No wheezing or rhonchi heard. HEART: Slightly irregular rate and rhythm showing a rate between 90 and 110. ABDOMEN: Soft, nontender. Positive bowel sounds. NEUROLOGIC: Alert and oriented times three. LABORATORY: White count stable at 5.5. Hemoglobin 10.4, hematocrit 32.1, platelet count 347,000. Differential is now without a left shift. Chemistries show a persistent hyponatremia at 128 with potassium 3.6, BUN 8, creatinine 0.53. Blood sugar was 88 with serum osmolality 254, calcium 7.8, low albumin 2.6 corrected to 8.1. Magnesium today is 1.8. MICROBIOLOGY: Blood cultures pending final culture result show a gram positive cocci with one anaerobic bottle positive. Urine culture showed no growth at 36 hours, final. Stool culture pending. C. difficile toxin A and B was negative. ASSESSMENT: 1. Gram positive bacteremia with likely source being pneumonia and possibly underlying urinary tract infection though urine culture showed no growth at 36 hours. 2. Sepsis secondary to #1 and pneumonia, likely healthcare acquired, with the patient having an elevated lactic acid and fever on admission, improving with treatment with parenteral antibiotic and fluids. 3. Hypoxia on admission due to pneumonia, likely healthcare acquired as the patient resides in a [facility] facility and and has failed recent outpatient treatment plan. She continues to be on parenteral antibiotics with aggressive antibiotic therapy, awaiting final culture results for further treatment of gram positive bacteremia. 4. Chronic atrial fibrillation with controlled ventricular rate. 5. Chronic congestive heart failure, likely diastolic with etiology unknown with the patient not having a current echocardiogram on admission. 6. Persistent hyponatremia, probably chronic in nature with the patient on chronic diuretics. 7. Questionable urinary tract infection on admission, though urine cultures came back with no growth at 36 hours with the patient having history of urinary tract infection within the last month and bacteremia having been treated in the hospital at [place], [place], awaiting those medical records for further review. PLAN: At this point, we will continue antibiotic coverage with Zyvox, cefepime and azithromycin awaiting final culture results at which time we will target antibiotic therapy as appropriate. At some point, she will need to have an echocardiogram done to further rule out endocarditis as the source of bacteremia. She will need continued treatment for at least minimum of 14 days IV antibiotics based on culture results. Once those results are available and sensitivity, I will touch base with Dr. Martinez to plan for further outpatient management. She does reside at [facility] and sees Dr. Vazquez as primary care provider. I did discuss with her grandson the need for possible [facility] therapy either in an long-term acute care facility which he feels the power of admitted attorneys will certainly refuse and option of [facility] either here or in [place]. I suggested treating in [facility] in [place] is warranted as the patient is cared for by Dr. 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 Until she can transition to outpatient management based on culture results, we will continue to monitor and treat as needed. #[id number] [facility]
[2018-07-02] MEDS ORDERED: SODIUM CHL 0.9% 50ML MIN-BAG+ 50 ML IVPB ONE (08:51)
[2018-07-02] MEDS ORDERED: CEFEPIME 2 GM VIAL ONE (08:52)
[2018-07-02] MEDS: CEFEPIME 2 GM in SODIUM CHL 0.9% 50ML MIN-BAG+ 50 ML IVPB SCH (08:55)
[2018-07-02] MEDS: ENOXAPARIN SODIUM 30 MG/0.3 ML SYG SUBCU SCH (08:57)
[2018-07-02] MEDS: METOPROLOL SUCCINATE XL 50 MG TAB PO SCH (08:58)
[2018-07-02] MEDS: FUROSEMIDE 40 MG TAB PO SCH (08:58)
[2018-07-02] MEDS: SPIRONOLACTONE 25 MG TAB PO SCH (08:59)
[2018-07-02] MEDS: BIFIDOBACTERIUM INFANTIS 4 MG CAP PO SCH (08:59)
[2018-07-02] MEDS: ASPIRIN (ENTERIC COATED) 81 MG TAB PO SCH (08:59)
[2018-07-02] MEDS: MEGESTROL ACETATE 40 MG TAB PO SCH (08:59)
[2018-07-02] MEDS ORDERED: SODIUM CHLORIDE 0.9% 250ML 250 ML ONE (13:53)
[2018-07-02] MEDS ORDERED: AZITHROMYCIN IV 500 MG VIAL IVPB ONE (13:54)
[2018-07-02] MEDS: AZITHROMYCIN IV 500 MG in SODIUM CHLORIDE 0.9% 250ML 250 ML IVPB SCH (15:59)
[2018-07-02] MEDS: PRAVASTATIN SODIUM 20 MG TAB PO SCH (20:12)
--- NOTE | 2018-07-02 21:06 | PN ---
DATE: 07/02/18 SUPERVISING PHYSICIAN: Jack Avelar M.D. SUBJECTIVE: The patient is much more active this morning. She is actually smiling and laughing with nursing staff. She shakes her head yes or no that she is feeling a little bit better today. OBJECTIVE: VITAL SIGNS: Temperature 98.6, pulse 114, blood pressure 121/74, respirations 16, satting 98% on room air. I's and O's show a negative balance of 182 with 8 in, 2049 out. Weight is 44.4 kg. GENERAL: The patient is very interactive this morning. She appears to be in no acute distress. She is alert. CHEST: Lung sounds remain diminished towards the bases but no wheezing or rhonchi is noted. HEART: Slightly irregular rate and rhythm with no appreciable murmurs, gallops, or rubs. Rate is between 90 to 110. ABDOMEN: Soft, non-tender. Positive bowel sounds. EXTREMITIES: She is alert and oriented to location with yes or no answers. LABORATORY: White count is shown to be stable. Yesterday it was 5,500. Chemistries today show an improving sodium that is 133, potassium is down just a little bit to 3.4, BUN 10, creatinine 0.71. Osmolality is up to 266, calcium 8.4 corrected from 7.9 with albumin correction. MICROBIOLOGY: Blood culture still remains in preliminary status that shows coagulation negative Staph that is sensitive to all but erythromycin and Bactrim , showing to be sensitive to Augmentin, Cefazolin, clindamycin, vancomycin, Rifampin, Tetracycline and Oxacillin. Stool cultures are pending. RADIOLOGY: No additional radiographic studies today. ASSESSMENT: 1. Coagulation negative Staphylococcus bacteremia likely sour of pneumonia with possible underlying urinary tract infection although urine culture showed no growth at 36 hours with the patient showing good response with parenteral antibiotics. 2. Sepsis secondary to #1 likely healthcare acquired, with the patient having an elevated lactic acid and fever on admission showing improvement and continuing improvement with parenteral antibiotics. 3. Chronic atrial fibrillation with controlled ventricular rate not on any chronic anticoagulation. 4. Chronic congestive heart failure, likely diastolic with etiology unknown with the patient not having a current echocardiogram on admission showing to be without any exacerbation. 5. Persistent hyponatremia, probably chronic in nature with the patient on chronic diuretics as well as underlying pneumonia exacerbation, but showing improvement with fluids and diuretics. 6. Questionable urinary tract infection on admission, although cultures came back with no growth at 36 hours with a history of urinary tract infection with the last being within the last month and the patient having bacteremia which has been treated in the hospital at [place], [place] with those records not currently available for review. PLAN: I have contacted Infectious Disease, Dr. Martinez, but I have not heard back from her, in efforts to decide on discharge planning. Given that she has some good clinical improvement after 5 days on antibiotic therapy with azithromycin, Cefepime and Linezolid with current culture results, will discontinue the azithromycin as she has finished a course of that and Linezolid , and keep her on Cefepime awaiting consultation with Dr. Martinez. We did encourage her to eat as much as possible, which she is not wanting to eat at all. She will drink coffee but does not want to eat. Ultimately hopefully be able to discharge the patient in the next 24 to 48 hours depending on ultimate plan of discharge continuation of treatment, more likely to go to [facility] in [place] where her primary care provider practices, Dr. Vazquez. She will need an echocardiogram more likely and continuation of antibiotics at least for 2 weeks until the echocardiogram is shown to be negative, of course still awaiting final decision from Dr. Martinez. Until she can transition to outpatient management will continue to monitor and treat as needed. #[id number] [facility]
[2018-07-03] MEDS: LEVALBUTEROL NEBS 1.25 MG/3 ML VIAL NEB SCH ×3 (00:32→16:34)
[2018-07-03] MEDS: PANTOPRAZOLE SODIUM TAB 40 MG PO SCH (05:37)
--- NOTE | 2018-07-03 06:44 | RAD ---
EXAM DESCRIPTION: Chest,1 View CLINICAL HISTORY:87 years Female, pneumonia Comparison: June 30, 2018 FINDINGS: Small bilateral pleural effusions with bibasilar opacities representing atelectasis or pneumonia, slightly worsened from prior. Cardiac silhouette is unchanged. Electronically signed by: Surya Rangel MD 07/03/2018 6:42 AM [facility]
[2018-07-03] MEDS ORDERED: SODIUM CHL 0.9% 50ML MIN-BAG+ 50 ML IVPB ONE (07:37)
[2018-07-03] MEDS ORDERED: CEFEPIME 2 GM VIAL ONE (07:38)
[2018-07-03] MEDS: CEFEPIME 2 GM in SODIUM CHL 0.9% 50ML MIN-BAG+ 50 ML IVPB SCH (08:56)
[2018-07-03] MEDS: SPIRONOLACTONE 25 MG TAB PO SCH (08:59)
[2018-07-03] MEDS: BIFIDOBACTERIUM INFANTIS 4 MG CAP PO SCH (08:59)
[2018-07-03] MEDS: ENOXAPARIN SODIUM 30 MG/0.3 ML SYG SUBCU SCH (08:59)
[2018-07-03] MEDS: FUROSEMIDE 40 MG TAB PO SCH (08:59)
[2018-07-03] MEDS: METOPROLOL SUCCINATE XL 50 MG TAB PO SCH (09:00)
[2018-07-03] MEDS: MEGESTROL ACETATE 40 MG TAB PO SCH (09:00)
[2018-07-03] MEDS: ASPIRIN (ENTERIC COATED) 81 MG TAB PO SCH (09:00)
[2018-07-03] MEDS: SODIUM CHLORIDE 0.9% 500ML 500 ML IVS ONE ×2 (10:17→12:22)
[2018-07-03] MEDS ORDERED: levoFLOXacin 500 MG TAB PO ONE (11:13)
[2018-07-03] MEDS ORDERED: levoFLOXacin 500 MG TAB ONE (11:20)
[2018-07-03] MEDS ORDERED: DOXYCYCLINE HYCLATE CAP 100 MG CAP ONE (11:20)
[2018-07-03] MEDS: DOXYCYCLINE HYCLATE CAP 100 MG CAP PO SCH ×2 (11:21→20:45)
[2018-07-03] MEDS ORDERED: SODIUM CHLORIDE 0.9% 500ML 500 ML IVS ONE (11:48)
[2018-07-03] MEDS: DEX 5% W/NACL 0.9% 1000ML 1,000 ML IVS PRN (12:14)
[2018-07-03] MEDS: ONDANSETRON INJ 4 MG/2 ML VIAL IV PRN (12:18)
[2018-07-03] MEDS ORDERED: METOPROLOL TARTRATE 25 MG TAB PO ONE ×2 (13:06→19:59)
[2018-07-03] MEDS: IV SET AND CAP CHANGE INJ INJ SCH (13:18)
--- NOTE | 2018-07-03 17:16 | PN ---
DATE: SUPERVISING PHYSICIAN: Jack Avelar M.D. SUBJECTIVE: The patient has been having increasing ventricular response with her atrial fibrillation. This morning she required some critical intervention with cardiac medications to include Cardizem and close monitoring to get better control of her ventricular rate. With the increasing rate she was having some nausea which could be associated with the newly started doxycycline. She is also reporting that she just was not feeling well, but her blood pressure was staying fairly stable. She was given 1 dose of Cardizem 10 mg and had good response, and was continued on a beta becky orally. I also did talk with Infectious Disease specialist, Dr. Martinez, and she noted that the patient can continue with outpatient management of her infection with oral doxycycline and Levaquin, and no need for followup blood cultures or echocardiogram due to the fact that the organism in the blood culture is likely a contaminant and the patient has no hardware or pacemaker in place. She was started on doxycycline and Levaquin. She has been afebrile. OBJECTIVE: VITAL SIGNS: Temperature 98.0, pulse 147 with blood pressure 111/ 71. She was satting 94% on room air. After 10 mg of Cardizem her blood pressure remained stable and her heart rate decreased to high 90s to approximately 110. I's and O's show a negative balance of 116 with 784 in, 900 out. Weight is up slightly to 44.6 kg. GENERAL: The patient appears a little anxious but in no acute distress. She is actually verbalizing a little and fully cooperative. CHEST: Lung sounds are diminished towards the bases. There is no obvious rhonchi or wheezing noted. HEART: Irregular rate and rhythm with rapid ventricular response noted on bedside monitor and 12-lead at 140s to 150s. ABDOMEN: Soft, non-tender. Positive bowel sounds. EXTREMITIES: No clubbing, cyanosis or edema. She moves all extremities ad yanelis. NEUROLOGIC: She is alert but does not verbalize fully to fully assess for orientation, only to current location questions and dates. There is no notable neuro focal or motor deficits. Facial features remain symmetrical. LABORATORY: Chemistries show persistent sodium at 128 with potassium 4.5, BUN 12, creatinine 0.67, calcium 7.8 corrected to 8.4 with low albumin. MICROBIOLOGY: One set of blood cultures finalized with no growth. Anaerobic bottle showed coag negative Staph. Please see that sensitivity for full report. Stool cultures pending. Urine culture showed no growth in 36 hours. Clostridium Difficile toxin A and B were negative for toxin and antigen. RADIOLOGY: Repeat chest x-ray this morning of single view chest per radiology interpretation showed small bilateral pleural effusions with bibasilar opacities representing atelectasis or pneumonia slightly worsened from previous and cardiac silhouette is unchanged. ASSESSMENT: 1. Coagulation negative Staphylococcus bacteremia, likely source more of a contaminant but possibly pneumonia versus underlying urinary tract infection, but urine cultures show no growth at 36 hours with the patient showing good response with parenteral antibiotics and now being transitioned to p.o. medication to include doxycycline and Levaquin, both renally dosed. 2. Sepsis secondary to #1 likely healthcare acquired as the patient resides at a care home care facility. She had a lactic acid that was elevated along with febrile on admission continuing to show improvement with parenteral antibiotics and now transitioned to p.o. antibiotics. 3. Chronic atrial fibrillation with acute exacerbation with a rapid ventricular response requiring acute intervention with Cardizem and initiation of additional beta becky with the patient now having good control and showing to be hemodynamically stable with the patient not having been on any chronic anticoagulation prior to admission. 4. Chronic congestive heart failure, likely diastolic with likely combination diastolic and systolic, uncertain etiology with the patient having no echocardiogram on admission and showing some slight exacerbation with rapid ventricular response but improving with treatment. 5. Chronic hyponatremia from Spironolactone and Lasix administration and exacerbated somewhat by the underlying pneumonia, continuing to show improvement and being stable with fluids. 6. Cystitis with culture results showing no growth at 36 hours in a patient with bacteremia and treated previously in the hospital for again what was reported to be bacteremia and urinary tract infection with those records not available currently and the patient currently showing to be improving with parenteral antibiotics and able to transition to p.o. medication. PLAN: I did discuss the case with Dr. Martinez and given the fact that the patient has no hardware or pacemaker, and that the isolate of the single bottle was more likely a skin contaminant given that it was a coag negative Staph, more likely Staph epidermidis. She noted that the patient could be transitioned to p.o. medication to include doxycycline and Levaquin for a total treatment course of 10 days and with no need to have additional blood cultures or echocardiogram. I have discontinued all of her current parenteral antibiotics and now started on doxorubicin and renally dosed Levaquin 500 to continue Levaquin at 250 mg daily. I have encouraged the patient to eat to prevent any nausea associated with the doxycycline. I anticipate hopefully being able to discharge tomorrow if the patient's cardiac situation stays stable and her rate control is controlled with additional beta blockade given the acute rapid ventricular response requiring intervention today. I will anticipate I will change her beta becky from extended release metoprolol to metoprolol tartrate 25 mg b.i.d. as I think this is the ultimate reason for her exacerbation of the atrial fibrillation and rapid ventricular response. Again, if she shows to be stable through the night, will discharge back to [facility] tomorrow with close followup to be with her primary care provider, Dr. Vazquez. Until then, will continue to monitor and treat as needed. #[id number] [facility]
[2018-07-03] MEDS: PRAVASTATIN SODIUM 20 MG TAB PO SCH (20:45)
[2018-07-04] MEDS: DEX 5% W/NACL 0.9% 1000ML 1,000 ML IVS PRN ×2 (00:03→13:12)
[2018-07-04] MEDS: LEVALBUTEROL NEBS 1.25 MG/3 ML VIAL NEB SCH ×4 (00:18→23:37)
[2018-07-04] MEDS: PANTOPRAZOLE SODIUM TAB 40 MG PO SCH (06:14)
--- NOTE | 2018-07-04 07:19 | RAD ---
EXAM DESCRIPTION: Chest,1 View CLINICAL HISTORY: pneumonia COMPARISON: 07/03/2018 FINDINGS: Cardiac silhouette is unchanged. There is again consolidation at each lung base with small bilateral pleural effusions. Upper lobe edema has mildly improved. IMPRESSION: Bilateral consolidations. Improving aeration of the upper lungs. Electronically signed by: Wei Myles 07/04/2018 7:18 AM [facility]
[2018-07-04] MEDS ORDERED: METOPROLOL TARTRATE 25 MG TAB PO SCH (07:30)
[2018-07-04] MEDS: ASPIRIN (ENTERIC COATED) 81 MG TAB PO SCH (09:10)
[2018-07-04] MEDS: levoFLOXacin 500 MG TAB PO SCH (09:10)
[2018-07-04] MEDS: DOXYCYCLINE HYCLATE CAP 100 MG CAP PO SCH ×2 (09:10→20:49)
[2018-07-04] MEDS: FUROSEMIDE 40 MG TAB PO SCH (09:10)
[2018-07-04] MEDS: BIFIDOBACTERIUM INFANTIS 4 MG CAP PO SCH (09:10)
[2018-07-04] MEDS: MEGESTROL ACETATE 40 MG TAB PO SCH (09:10)
[2018-07-04] MEDS: SPIRONOLACTONE 25 MG TAB PO SCH (09:10)
[2018-07-04] MEDS: ENOXAPARIN SODIUM 30 MG/0.3 ML SYG SUBCU SCH (09:11)
[2018-07-04] MEDS ORDERED: METOPROLOL TARTRATE 25 MG TAB PO ONE (10:48)
--- NOTE | 2018-07-04 15:28 | PN ---
DATE: 07/04/18 SUPERVISING PHYSICIAN: Jack Avelar M.D. SUBJECTIVE: The patient appears to be doing a little bit better this morning, although her heart rate is once again starting to climb up into the 120s. Her metoprolol was changed to b.i.d., but apparently it is not working as well as anticipated. She has been transitioned to her p.o. medications. She has been afebrile overnight. She has had no nausea or vomiting. OBJECTIVE: VITAL SIGNS: Temperature 99.1, pulse 121, blood pressure 130/81, respirations 20, satting 98% on nasal cannula at rest. I's and O's show a positive balance of 169 with 1944 in, 1775 out. She has had 1 bowel movement. Weight is 44.7 kg. GENERAL: The patient is resting comfortably. She appears to be in no acute distress. She shakes her head to yes and no questions. CHEST : Lungs sounds are diminished towards the bases but no obvious rhonchi, wheezing or rales noted today. HEART: Irregular rate and rhythm with continued rapid ventricular response at times into the 120s. ABDOMEN: Soft, non-tender. Positive bowel sounds. EXTREMITIES: Without any clubbing, cyanosis or edema. NEUROLOGIC: She is alert but is unable to answer questions as she will not verbalize, but answers yes or no questions with head nod. LABORATORY: Chemistries show sodium 131, potassium 3.8, BUN 12, creatinine 0.76. AST is slightly elevated at 49. All other liver functions show to be within normal limits. MICROBIOLOGY: Stool culture is pending. One set of blood cultures finalized with no growth. Anaerobic bottle showed coag negative Staph. Please see that sensitivity for full report. Stool cultures pending. Urine culture showed no growth in 36 hours. Clostridium Difficile toxin A and B were negative for toxin and antigen. RADIOLOGY: Repeat chest x-ray this morning per radiology interpretation of single view chest shows bilateral consolidations, improving aeration of upper lungs. ASSESSMENT: 1. Coagulation negative Staphylococcus bacteremia, likely a contamination but with possible pneumonia versus underlying urinary tract infection and urine cultures showing no growth at 36 hours. The patient continues to show good response to parenteral antibiotics and was transitioned to p.o. medication and continues to show improvement. 2. Sepsis secondary to #1. 3. Chronic atrial fibrillation with acute exacerbation with a rapid ventricular response requiring Cardizem and again readjusting of medication regimen with the patient having not been on any prior anticoagulation. 4. Chronic congestive heart failure, likely a combination of diastolic and systolic with no echocardiogram available at the time of admission with the patient having left exacerbation due to rapid ventricular response from atrial fibrillation but showing ongoing improvement. 5. Chronic hyponatremia from Spironolactone and Lasix showing to be stable. 6. Cystitis although negative culture results at 36 hours with the patient having a history of previously having a urinary tract infection resulting in bacteremia with previous hospitalization in [place] with no records available during this hospitalization with the patient now transitioned to p.o. medication. PLAN: Will go ahead and increase her metoprolol to 50 mg b.i.d. after a dose of 10 mg Cardizem to get better control of her rate. Will observe this overnight and hopefully they will discharge tomorrow if she stays stable. She will continue with treatment for the coag negative Staph bacteremia will oral doxycycline and Levaquin that have been renally dosed for a total of 10 day course treatment which will be including hospitalization. Again, hopefully be able to discharge to [facility] tomorrow if she stays stable in regards to her atrial fibrillation and RVR. Until then will continue to monitor and treat as appropriately needed. [facility][id number] [facility]
[2018-07-04] MEDS: METOPROLOL TARTRATE 50 MG TAB PO SCH (17:20)
[2018-07-04] MEDS: ACETAMINOPHEN 325 MG TAB PO PRN (18:53)
[2018-07-04] MEDS: PRAVASTATIN SODIUM 20 MG TAB PO SCH (20:49)
[2018-07-05] MEDS: DEX 5% W/NACL 0.9% 1000ML 1,000 ML IVS PRN (01:45)
[2018-07-05] MEDS: PANTOPRAZOLE SODIUM TAB 40 MG PO SCH (06:13)
[2018-07-05 06:59] VITALS: O2SAT 97
[2018-07-05] MEDS: METOPROLOL TARTRATE 50 MG TAB PO SCH (07:44)
[2018-07-05] MEDS: LEVALBUTEROL NEBS 1.25 MG/3 ML VIAL NEB SCH (07:51)
[2018-07-05] MEDS: DOXYCYCLINE HYCLATE CAP 100 MG CAP PO SCH (08:55)
[2018-07-05] MEDS: SPIRONOLACTONE 25 MG TAB PO SCH (08:55)
[2018-07-05] MEDS: FUROSEMIDE 40 MG TAB PO SCH (08:55)
[2018-07-05] MEDS: BIFIDOBACTERIUM INFANTIS 4 MG CAP PO SCH (08:55)
[2018-07-05] MEDS: ENOXAPARIN SODIUM 30 MG/0.3 ML SYG SUBCU SCH (08:55)
[2018-07-05] MEDS: MEGESTROL ACETATE 40 MG TAB PO SCH (08:55)
[2018-07-05] MEDS: levoFLOXacin 500 MG TAB PO SCH (08:55)
[2018-07-05] MEDS: ASPIRIN (ENTERIC COATED) 81 MG TAB PO SCH (08:55)
[2018-07-05 10:00] VITALS: BP 110/73; TEMP 98
--- NOTE | 2018-07-14 10:31 | DS ---
SUPERVISING PHYSICIAN: Jack Avelar MD ADMISSION DIAGNOSIS: 1. Sepsis secondary to probable developing early pneumonia with the patient having an elevated lactic acid and fever on admission with tachycardia and low O2 saturations, and elevated lactic acid. 2. Hypoxia probably due to early pneumonia more likely healthcare acquired with the patient having been a resident of [facility] and previously being on recent antibiotics having failed to respond to outpatient treatment plan now requiring initiation of parenteral antibiotics and more aggressive antibiotic regimen. 3. Chronic congestive heart failure likely diastolic with no echocardiogram to review at time of admission with the patient showing an elevated BNP probably falsely elevated due to dehydration. 4. Electrolyte imbalance to include hyponatremia probably chronic in nature due to the patient being on chronic diuretics to include Hydrochlorothiazide and Spironolactone, and exacerbated by developing pneumonia. 5. Moderate dehydration. 6. Respiratory alkalosis likely due to aggressive administration of oxygen prior to hospitalization with the patient showing some compensation. 7. Urinary tract infection with cultures pending. 8. Chronic atrial fibrillation on beta becky with rapid ventricular response on admission likely due to acute illness with the patient not being on any chronic anticoagulation but showing to be hemodynamically stable. 9. Gastroesophageal reflux disease. 10. History of polyneuropathy with rheumatoid arthritis. 11. History of osteoporosis. 12. History of hyperlipidemia. DISCHARGE DIAGNOSIS: 1. Coagulation negative Staphylococcus bacteremia, possible contamination, but unable to fully rule out pneumonia versus urinary tract infection with urine cultures showing no growth at 36 hours. The patient showed good response to parenteral antibiotics and was transitioned to p.o. medication and continued to show improvement prior to discharge. 2. Sepsis secondary to #1, improving with antibiotic therapy. 3. Chronic atrial fibrillation with initial acute exacerbation with a rapid ventricular response requiring Cardizem and again readjusting of medication regimen with the patient having not been on any prior anticoagulation, showing controlled ventricular rate prior to discharge. 4. Chronic congestive heart failure, likely a combination of diastolic and systolic with no echocardiogram available at the time of admission with the patient having exacerbation due to rapid ventricular response from atrial fibrillation but showing ongoing improvement with medication adjustment. 5. Chronic hyponatremia due to spironolactone and Lasix, stable. 6. Chronic cystitis with culture results negative at 36 hours with the patient having a previous urinary tract infection with bacteremia noted with previous hospitalization in [place] within the last 2 months, but no records available during hospitalization with the patient at this point transitioned to p.o. medication, showing improvement. REASON FOR HOSPITALIZATION: Ms. Jane is an 87-year-old female patient that resides at [facility]. This morning, she was found by the [facility] to be with low O2 saturation of less than 70 on room air. She is not normally on oxygen and has no significant history of pulmonary disease. It is noted that the patient is nonverbal and the majority of the history was obtained from [facility] record and [facility] report. The [facility] reports that the patient had been sick for a couple of days running fever and a cough, but had denied any chest pains. She was started on Levaquin yesterday. Today in the Emergency Department vital signs showed that she was febrile with a temperature of 100.2, pulse 138, blood pressure 109/40, respirations 18, satting 85% on room air. On nasal cannula, she went up to 93% . She does have a history of atrial fibrillation and is on a beta becky for rate control with no anticoagulant. Chest x-ray, single view chest, per radiology interpretation showed pulmonary vasculature to be within normal limits and no discrete airspace infiltrates or pleural effusions on the single view chest. Laboratory studies showed she had a white count that was within normal limits at 9,100 but she did have a left shift. Blood gas analysis showed a pH of 7.520, satting 99% on 4 liters nasal cannula with pO2 of 31, pCO2 of 31, pO2 108, bicarb 24.8. Chemistries showed a mild hyponatremia with sodium 130, creatinine 0.39, lactic acid was elevated at 2.3. Liver functions all showed to be within normal limits. Troponin was less than 0.02, BNP was elevated at 513. She does have a history of congestive heart failure but no echocardiogram is available for review at time of admission. Given the clinical findings of room air hypoxia and recent treatment for upper respiratory infection concerning for possible developing pneumonia likely hospital acquired as she does reside at a [facility], Dr. Deleon, [facility] physician, started her on treatment for pneumonia with cefepime after blood cultures were completed. The patient is now going to be admitted to the Medical/Surgical floor for ongoing treatment of probable developing early pneumonia, hospital acquired, with the patient having failed to respond to outpatient treatment measures. She was admitted in stable condition. LABORATORY: White count on admission was 9,100. At discharge, it was 5,500. Hemoglobin and hematocrit were stable at 10.4 and 32.1, respectively, with platelet count 347,000. Differential did show a mild left shift that resolved prior to discharge. Coagulation studies showed PT 11.5, PT-T 27.0. Blood gas analysis showed pH 7.52 initially with PCO2 31, PO2 108, bicarb 24.8, saturation 99% on 2 liters nasal cannula. Chemistries on admission showed hyponatremia of 130. At discharge, it had improved to 131 and stable. Electrolytes within normal limits at discharge as well as on admission with BUN 24 at admission and at discharge normalized to 12. Creatinine 0.83 on admission and at discharge, 0.76. Liver functions all within normal limits. She had an elevated lactic acid initially on admission at 2.3, but after fluids , decreased to 1.8. She did have low magnesium of 1.7, improved to 1.8 after treatment. BNP elevated at 513. Urinalysis on admission showed 15 ketones, moderate amount of blood, large leukocyte esterase. Microscopic showed RBCs screwed by WBCs with too numerous to count WBCs and 2+ bacteria. MICROBIOLOGY: C. difficile toxin A and B that was negative for antigen and toxin. Stool culture showed normal enteric alvin. Blood cultures showed no growth at 5 days incubation on second set of blood cultures. First set blood cultures showed gram positive cocci in pairs with clusters showing a coagulation negative Staphylococcus showing sensitive to vancomycin, but resistant to Bactrim and sensitive to clindamycin, cefazolin and penicillins. Influenza A and B swab by PCR was negative for A and B. RADIOLOGY: Chest x-ray in the Emergency Department prior to admission per radiologic interpretation showed no acute pleural parenchymal processes seen in imaged soto. She had multiple x-rays throughout hospitalization. Final x- ray on 07/04/18 per radiologic interpretation of single view chest showed bilateral consolidations, improving aeration of her lungs. EKG in the Emergency Room showed atrial fibrillation with rapid ventricular response at 133. HOSPITAL COURSE: Ms. Jane was admitted on 06/27/18 and discharged on . She was initiated on treatment for sepsis with pneumonia and underlying urinary tract infection initially treated with cefepime, Zyvox, azithromycin as she does reside at a long-term care facility. She did show good response to treatment, however, she had a blood culture that was positive for coagulation Staphylococcus and was transitioned to antibiotic therapy according to the sensitivity report. She did have an episode of rapid ventricular response on her atrial fibrillation which was treated with Cardizem and after modification of her Toprol to include 25 mg b.i.d., she showed better control of her rate with no complications. After talking with infectious disease specialist, Dr. Martinez, based on the fact the patient did not have any hardware or pacemaker implanted, she was transitioned for treatment of coagulation negative Staphylococcus with oral doxycycline and Levaquin and was found to be clinically well enough to discharge to continue with outpatient treatment back to [facility] for a total of 10 day treatment course. PLAN: Ms. Jane was discharged on 07/05/18 with instructions to have close clinical followup with Dr. Vazquez. Dr. Vazquez was supposed to be notified of the patient's discharge and recent hospitalization and need for followup. She was to resume her medications per the electronic medical record. They were to encourage meals and snacks and a nutritional consultation warranted. The patient was taking very little oral intake and refusing to eat. She was encouraged again to have multiple small meals and snacks if possible. Diet was as noted above. Activity per physical therapy. NEW PRESCRIPTIONS AT DISCHARGE: 1. Albuterol nebulizers 2.5 mg q.4h. as needed. 2. Align 4 mg daily. 3. Doxycycline 100 mg twice daily for 10 days. 4. Xopenex 1.25 mg q.8h. as needed for breathing treatments. 5. Levaquin 250 mg daily. 6. Lopressor 50 mg twice daily. 7. Zofran 4 mg q.4h. as needed for nausea. CONDITION AT DISCHARGE: Stable. DISPOSITION: The patient was discharged back to [facility]. #[id number] MTDD
== END 2018-07-05 12:58 | DRG 871 ==
LOC: ER 07:40 → MS 10:58
PROVIDERS: ADMIT Nurse Practitioner Family; ATTEND Nurse Practitioner Family
DX: A41.2 Sepsis due to unspecified staphylococcus (principal); E41 Nutritional marasmus; J18.9 Pneumonia, unspecified organism; E87.2 Acidosis; I50.42 Chronic combined systolic (congestive) and diastolic (congestive) heart failure; E87.1 Hypo-osmolality and hyponatremia; E87.3 Alkalosis; N30.20 Other chronic cystitis without hematuria; I69.320 Aphasia following cerebral infarction; I48.2 Chronic atrial fibrillation; K21.9 Gastro-esophageal reflux disease without esophagitis; M05.50 Rheumatoid polyneuropathy with rheumatoid arthritis of unspecified site; M81.0 Age-related osteoporosis without current pathological fracture; E78.5 Hyperlipidemia, unspecified; M24.50 Contracture, unspecified joint; E86.0 Dehydration

== ENCOUNTER 2018-07-15 12:10 | Emergency (ER) | payer MEDICARE ==
--- NOTE | 2018-07-15 12:37 | RAD ---
EXAM DESCRIPTION: Chest,1 View CLINICAL HISTORY: 87 years Female, hypoxia COMPARISON: Previous study July 04, 2018 TECHNIQUE: AP portable chest. FINDINGS: Heart size is large with normal pulmonary vascularity. No consolidating infiltrate. Multiple densities overlying the right shoulder, left supraclavicular region and chest are thought to be external to the patient as with custom jewelry. No pulmonary mass or worrisome nodule. No pneumothorax or pleural effusion. Bones are unremarkable. IMPRESSION: Large heart without congestive failure. Electronically signed by: Yair Martinez MD 07/15/2018 12:36 PM WET TRIMMER
[2018-07-15] MEDS ORDERED: PIPERACILLIN/TAZOBACTAM 2.25 GM in SODIUM CHLORIDE 0.9% 50ML 50 ML IVPB ONE (13:21)
--- NOTE | 2018-07-15 13:52 | CT ---
EXAM DESCRIPTION: Head: Computed Tomography. CLINICAL HISTORY: altered LOC ? Facial droop COMPARISON: CT scan of the head without contrast 06/07/2018. TECHNIQUE: Non-helical axial scans through the skull and brain, at 2 x 20 mm intervals, non-contrast. Coronal and sagittal 2.0 mm reconstructions. Total Exam DLP: 752.48 mGy-cm. This exam was performed according to our departmental dose-optimization program which includes automated exposure control, adjustment of the mA and/or kV according to patient size and/or use of iterative reconstruction technique; to reduce radiation dose to as low as reasonably achievable (ALARA). FINDINGS: Study was limited due to patient decreased mental status and inability to hold head in optimal position for scanning. No hemorrhage, no mass-effect, and no midline shift. Large region of decreased periventricular white matter density abutting the frontal horn of the left lateral ventricle with dilation of the frontal horn. Also low-density in the left basal ganglia and internal capsule. No abnormal radiodense material in the brain parenchyma. Vascular calcifications anterior and posterior circulation; physiologic calcifications in the pineal gland and choroid plexus. No effacement or displacement of the ventricles, CSF spaces, or subdural spaces. Mild prominence of these spaces, more prominent in the left frontal lobe.. No extra axial fluid collection or hemorrhage. No gross abnormalities of the bony calvarium. Included paranasal sinuses and mastoid air cells are well - aerated. Soft tissue density in the base of the left maxillary antrum. IMPRESSION: 1. No hemorrhage, no mass effect, no midline shift. 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 No extra-axial hemorrhage. 2. CT scans are insensitive for detecting small CVAs in the first 24 hours after onset. Evaluation of the brain stem is also limited. If symptoms persist, consider NON-EMERGENT MRI scan of the brain with diffusion imaging. Electronically signed by: Wei Brand MD 07/15/2018 1:51 PM MECHANICS SUPERVISOR
--- NOTE | 2018-07-15 13:56 | ED.PDOC ---
History of Present Illness - General Chief Complaint: Respiratory Problem Stated Complaint: Sent for evaluation of low O2 sat Time Seen by Provider: 07/15/18 12:18 Source: patient Exam Limitations: clinical condition, physical impairment - History of Present Illness Initial Comments: patient is a prison patient he was found slumped over with oxygen saturations in the 50s. Patient was given a breathing treatment at the prison but failed to respond and subsequently EMS was called. On arrival EMS gave her a nonrebreather and then switched to nasal cannula as her oxygen levels improved dramatically very quickly. Patient normally is only minimally verbal but she is not responding to EMS nor to staff here at the hospital. assisted did note what they thought was a left facial droop that was new for the patient although she does have a remote history of having a stroke with some deficit on that side. Patient at this time will occasionally sit up and does respond with withdrawal to painand will open her eyes spontaneously but for the most part is lying quietly and not responding to questions. Patient was recently hospitalized for pneumonia 2 weeks ago. Timing/Duration: 1/2 hour Severity: severe Activities at Onset: rest Possible Cause: no prior episodes Improving Factors: medication - oxygen given and O2 responded well Worsening Factors: nothing Associated Symptoms: denies symptoms Respiratory Risk Factors: no cause identified Allergies/Adverse Reactions: Allergies NO KNOWN ALLERGY Allergy (Verified 06/27/18 08:03) Home Medications: Ambulatory Orders Acetaminophen [Tylenol] 650 mg PO Q4HR PRN 06/27/18 Aspirin [Aspirin Adult Low Dose] 81 mg PO DAILY 06/27/18 Bisoprolol Fumarate 5 mg PO DAILY 06/27/18 Calcium Carbonate [Caltrate 600] 1,500 mg PO DAILY 06/27/18 Cholecalciferol [Vitamin D3] 1,000 unit PO DAILY 06/27/18 Esomeprazole Magnesium 20 mg PO DAILY 06/27/18 Ferrous Sulfate [Feosol Tab] 325 mg PO DAILY 06/27/18 Furosemide 20 mg PO DAILY 06/27/18 Multiple Vitamin [Ocuvite] 1 ea PO DAILY 06/27/18 Multiple Vitamins W/ Minerals [Ocuvite Lutein] 2 cap PO DAILY 06/27/18 Pravastatin Sodium 10 mg PO BEDTIME 06/27/18 Spironolactone 25 mg PO DAILY 06/27/18 Albuterol Sulfate Nebs [Proventil Nebs] 2.5 mg NEB Q4H PRN vial 07/05/18 Bifidobacterium Infantis [Align] 4 mg PO DAILY cap 07/05/18 Doxycycline Hyclate [Vibramycin] 100 mg PO BID 10 Days cap 07/05/18 Levalbuterol Nebs [Xopenex NEBS] 1.25 mg NEB RTQ8 vial 07/05/18 Metoprolol Tartrate [Lopressor] 50 mg PO BID 60 Days tab 07/05/18 Ondansetron Inj [Zofran Inj] 4 mg IV Q6H PRN vial 07/05/18 levoFLOXacin [Levaquin] 250 mg PO Q24H 10 Days tab 07/05/18 Review of Systems - Review of Systems Review of Systems: 07/15/18 13:56 unable to evaluate secondary to clinical condition Past Medical History (General) - Patient Medical History Hx Seizures: No Hx Stroke: Yes Hx Asthma: No Hx of COPD: - Chronic pulmonary edema Hx Cardiac Disorders: Yes - A fib Hx Congestive Heart Failure: Yes Hx Pacemaker: No Hx Hypertension: No Hx Diabetes: No Hx Gastroesophageal Reflux: Yes Hx MRSA: No - Vaccination History Hx Influenza Vaccination: - unknown Hx Pneumococcal Vaccination: - unknown - Social History Hx Tobacco Use: No Hx Alcohol Use: No Hx Substance Use: No Hx Physical Abuse: No Hx Emotional Abuse: No - Activities of Daily Living Care Home/Assisted Living (if applicable):: [facility] Family Medical History - Family History Mother Family History: Unknown Living Status: Physical Exam - Physical Exam General Appearance: Frail, No apparent distress Eyes, Ears, Nose, Throat Exam: PERRL/EOMI, TMs normal, pharynx normal, other - slight left facial droop Neck: non-tender, full range of motion, supple, normal inspection Respiratory: chest non-tender, lungs clear, normal breath sounds, no respiratory distress, no accessory muscle use Cardiovascular/Chest: tachycardia - 90s, irregularly irregular Peripheral Pulses: radial,right: 2+, radial,left: 2+ Gastrointestinal/Abdominal: normal bowel sounds, non tender, soft Extremity: non-tender, normal inspection, no pedal edema Neurologic: other - ppatient unable to comply with neurological requests is moving both arms spontaneously as well as both lower extremities Skin Exam: normal color Lymphatic: no adenopathy Progress - Progress Progress: spoke at length with daughter Tram Hector. pER DAUGHTER PATIENT HAS HAD A VERY POOR QUALITY OF LIFE FOR THE PAST SEVERAL MONTHS AND HAS NOT BEEN INTERACTIVE WITH THEM FOR SOME TIME. sHE'LL LONGER AMBULATES AND SHE HASN'T WANTED TO EAT FOR THE PAST SEVERAL MONTHS. fAMILY HAS BEEN DISCUSSING HOSPICE AT THIS TIME THAT IS WHAT THEY WOULD LIKE TO DO. wE'LL SEND HER BACK TO THE CARE HOME FOR HOSPICE CONSULT AT THAT TIME THE ALSO FILL OUT THE do not resuscitate ORDER PER DAUGHTER. 07/15/18 15:01 - Results/Orders Results/Orders: 07/15/18 12:30 BLOOD CULTURE Stat EKG STAT 07/15/18 13:21 Piperacillin/Tazobactam [Zosyn] 2.25 gm Sodium Chloride 0.9% 50Ml [NS 50ml] 50 ml IVPB ONCE 07/15/18 13:47 CTA Chest [CT] Stat Laboratory Results WBC 7.1 K/mm3 (4.8-10.8) 07/15/18 12:30 RBC 3.49 M/mm3 (4.20-5.40) L 07/15/18 12:30 Hgb 10.2 gm/dL (12.0-16.0) L 07/15/18 12:30 Hct 31.8 % (36.0-47.0) L 07/15/18 12:30 MCV 91.2 fl (81.0-99.0) 07/15/18 12:30 MCH 29.2 pg (27.0-31.0) 07/15/18 12:30 MCHC 32.1 g/dL (33.0-37.0) L 07/15/18 12:30 RDW 16.2 % (11.5-14.5) H 07/15/18 12:30 Plt Count 450 K/mm3 (130-400) H 07/15/18 12:30 MPV 7.1 fl (7.40-10.4) L 07/15/18 12:30 Absolute Neuts (auto) 4.90 K/uL (1.8-6.8) 07/15/18 12:30 Absolute Lymphs (auto) 1.00 K/uL (1.0-3.4) 07/15/18 12:30 Absolute Monos (auto) 1.00 K/uL (0.2-0.8) H 07/15/18 12:30 Absolute Eos (auto) 0.10 K/uL (0.0-0.4) 07/15/18 12:30 Absolute Basos (auto) 0.10 K/uL (0.0-0.1) 07/15/18 12:30 Neutrophils % 69.1 % (42.0-78.0) 07/15/18 12:30 Lymphocytes % 14.3 % (20.0-50.0) L 07/15/18 12:30 Monocytes % 14.4 % (2.0-9.0) H 07/15/18 12:30 Eosinophils % 1.4 % (1.0-5.0) 07/15/18 12:30 Basophils % 0.8 % (0.0-2.0) 07/15/18 12:30 D-Dimer, Quantitative 2.28 mg/L FEU (0-0.49) H* 07/15/18 12:30 pCO2 29 mmHg (32-45) L 07/15/18 12:18 pO2 93 mmHg (83-108) 07/15/18 12:18 HCO3 24.7 mmol/L 07/15/18 12:18 ABG pH 7.530 (7.35-7.45) H 07/15/18 12:18 ABG O2 Saturation 98.7 % (95.0-99.0) 07/15/18 12:18 ABG Base Excess 2.6 mmol/L 07/15/18 12:18 ABG Deoxyhemoglobin 1.3 % (0.0-5.0) 07/15/18 12:18 Oxyhemoglobin % 96.9 % (94.0-98.0) 07/15/18 12:18 Carboxyhemoglobin % 0.1 % (0.5-1.5) L 07/15/18 12:18 Methemoglobin % Sat 1.8 % (0.0-1.5) H 07/15/18 12:18 Calc Total Hemoglobin 9.4 g/dL (12.0-16.0) L 07/15/18 12:18 Sodium 131 mmol/L (135-145) L 07/15/18 12:30 Potassium 3.6 mmol/L (3.6-5.0) 07/15/18 12:30 Chloride 98 mmol/L (101-111) L 07/15/18 12:30 Carbon Dioxide 24 mmol/L (21-31) 07/15/18 12:30 Anion Gap 12.6 (12-18) 07/15/18 12:30 BUN 18 mg/dL (7-18) 07/15/18 12:30 Creatinine 0.62 mg/dL (0.6-1.3) 07/15/18 12:30 BUN/Creatinine Ratio 29.0 (10-20) H 07/15/18 12:30 Random Glucose 116 mg/dL (70-105) H 07/15/18 12:30 Serum Osmolality 265.5 mOsm/L (275-295) L 07/15/18 12:30 Lactic Acid 2.4 mmol/L (0.5-2.2) H* 07/15/18 12:30 Calcium 9.2 mg/dL (8.4-10.2) 07/15/18 12:30 Total Bilirubin 0.4 mg/dL (0.2-1.0) 07/15/18 12:30 AST 32 IU/L (10-42) 07/15/18 12:30 ALT 21 IU/L (10-60) 07/15/18 12:30 Alkaline Phosphatase 91 IU/L (42-121) 07/15/18 12:30 Creatine Kinase 33 IU/L (26-140) 07/15/18 12:30 CK-MB (CK-2) 1.8 ng/mL (0.0-4.4) 07/15/18 12:30 CK-MB (CK-2) % Not Reportable 07/15/18 12:30 Troponin I < 0.02 ng/mL (0.01-0.05) 07/15/18 12:30 B-Natriuretic Peptide 315.0 pg/ml (0-100) H* 07/15/18 12:30 Serum Total Protein 7.3 gm/dL (6.4-8.2) 07/15/18 12:30 Albumin 2.4 g/dl (3.2-5.5) L 07/15/18 12:30 Globulin 4.9 gm/dL (2.3-3.5) H 07/15/18 12:30 Albumin/Globulin Ratio 0.5 (1.1-1.9) L 07/15/18 12:30 Patient Name: FINESSE WADE Gender: Female Date of : 1930 Referring Physician: MANFRED CHAPA Organization: [facility] Accession Number: [id number] Requested Date: July 15, 2018 12:27 Report Status: Final Requested Procedure: 1 Procedure Description: Head Modality: CT Findings Reporting MD: Wei Brand Fellow MD: Not available Dictation Time: Route Sales Associate: Not available Director Of Hemophilia Date: EXAM DESCRIPTION: Head: Computed Tomography. CLINICAL HISTORY: altered LOC ? Facial droop COMPARISON: CT scan of the head without contrast 06/07/2018. TECHNIQUE: Non-helical axial scans through the skull and brain, at 2 x 20 mm intervals, non-contrast. Coronal and sagittal 2.0 mm reconstructions. Total Exam DLP: 752.48 mGy-cm. This exam was performed according to our departmental dose-optimization program which includes automated exposure control, adjustment of the mA and/or kV according to patient size and/or use of iterative reconstruction technique; to reduce radiation dose to as low as reasonably achievable (ALARA). FINDINGS: Study was limited due to patient decreased mental status and inability to hold head in optimal position for scanning. No hemorrhage, no mass-effect, and no midline shift. Large region of decreased periventricular white matter density abutting the frontal horn of the left lateral ventricle with dilation of the frontal horn. Also low-density in the left basal ganglia and internal capsule. No abnormal radiodense material in the brain parenchyma. Vascular calcifications anterior and posterior circulation; physiologic calcifications in the pineal gland and choroid plexus. No effacement or displacement of the ventricles, CSF spaces, or subdural spaces. Mild prominence of these spaces, more prominent in the left frontal lobe.. No extra axial fluid collection or hemorrhage. No gross abnormalities of the bony calvarium. Included paranasal sinuses and mastoid air cells are well - aerated. Soft tissue density in the base of the left maxillary antrum. IMPRESSION: 1. No hemorrhage, no mass effect, no midline shift. 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 No [facility] [address] [place] [address], [address] [place] [address] T [phone] F [phone] [email or web address] Report exported on Jul 15, 2018 13:53:37 [id number] - Page 2 of 2 extra-axial hemorrhage. 2. CT scans are insensitive for detecting small CVAs in the first 24 hours after onset. Evaluation of the brain stem is also limited. If symptoms persist, consider NON-EMERGENT MRI scan of the brain with diffusion imaging Patient Name: FINESSE WADE Gender: Female Date of : 1930 Referring Physician: MANFRED CHAPA Organization: [facility] Accession Number: [id number] Requested Date: July 15, 2018 12:18 Report Status: Final Requested Procedure: 1 Procedure Description: Chest,1 View Modality: CR Findings Reporting MD: Yair Martinez Fellow MD: Not available Dictation Time: Route Sales Associate: Not available Director Of Hemophilia Date: EXAM DESCRIPTION: Chest,1 View CLINICAL HISTORY: 87 years Female, hypoxia COMPARISON: Previous study July 04, 2018 TECHNIQUE: AP portable chest. FINDINGS: Heart size is large with normal pulmonary vascularity. No consolidating infiltrate. Multiple densities overlying the right shoulder, left supraclavicular region and chest are thought to be external to the patient as with custom jewelry. No pulmonary mass or worrisome nodule. No pneumothorax or pleural effusion. Bones are unremarkable. IMPRESSION: Large heart without congestive failure. Patient Name: FINESSE WADE Gender: Female Date of : 1930 Referring Physician: MANFRED CHAPA Organization: [facility] Accession Number: [id number] Requested Date: July 15, 2018 13:47 Report Status: Final Requested Procedure: 1 Procedure Description: CTA Chest Modality: CT Findings Reporting MD: Jaspal Roberson Fellow MD: Not available Dictation Time: Route Sales Associate: Not available Director Of Hemophilia Date: EXAM DESCRIPTION: CTA Chest CLINICAL HISTORY: 87 years Female, elevated ddimer and hypoxia COMPARISON: Radiograph of the chest dated 07/04/2018. TECHNIQUE: Contiguous thin section axial images were obtained from above the supraclavicular region to below the diaphragm level without the use of intravenous contrast. Sagittal and coronal reconstructions were reviewed. FINDINGS: A few hypodense nodules are identified in the left thyroid lobe. The supraclavicular regions appear normal. 8mm pretracheal lymph node is identified. No abnormally enlarged axillary, mediastinal or hilar lymphadenopathy is noted. No evidence of central or major vessel pulmonary embolus. Scarring is identified in the bilateral lung apices. No evidence of consolidation or groundglass opacities. Mild atelectasis is noted in the bilateral lung bases. Small right pleural effusion is noted. No evidence of left pleural effusion. No pneumothorax. The right and left atria are significantly enlarged in size. Reflux of contrast into the inferior vena cava is noted suggesting congestive heart failure. There is moderate atherosclerotic disease throughout the aorta. Limited evaluation of the upper abdomen demonstrates no gross abnormality. Degenerative changes are identified throughout the visualized spine. Compression deformities of T5 T8 and T10 vertebral bodies are noted. These are age indeterminate. IMPRESSION: 1. No evidence of central or major vessel pulmonary embolus. 2. Enlarged right and left atria with reflux of contrast into the inferior vena cava. Findings suggest congestive heart failure. 3. Age indeterminate compression deformities of T5, T8 and T10 vertebral bodies are noted. Departure - Departure Clinical Impression: Hypoxemia Disposition: Discharge to SNF Condition: Poor Departure Forms: ED Discharge - Pt. Copy, Patient Portal Self Enrollment Referrals: CONCHITA FORMAN [Primary Care Provider] - 1-2 Weeks Home Medications: Ambulatory Orders Acetaminophen [Tylenol] 650 mg PO Q4HR PRN 06/27/18 Aspirin [Aspirin Adult Low Dose] 81 mg PO DAILY 06/27/18 Bisoprolol Fumarate 5 mg PO DAILY 06/27/18 Calcium Carbonate [Caltrate 600] 1,500 mg PO DAILY 06/27/18 Cholecalciferol [Vitamin D3] 1,000 unit PO DAILY 06/27/18 Esomeprazole Magnesium 20 mg PO DAILY 06/27/18 Ferrous Sulfate [Feosol Tab] 325 mg PO DAILY 06/27/18 Furosemide 20 mg PO DAILY 06/27/18 Multiple Vitamin [Ocuvite] 1 ea PO DAILY 06/27/18 Multiple Vitamins W/ Minerals [Ocuvite Lutein] 2 cap PO DAILY 06/27/18 Pravastatin Sodium 10 mg PO BEDTIME 06/27/18 Spironolactone 25 mg PO DAILY 06/27/18 Albuterol Sulfate Nebs [Proventil Nebs] 2.5 mg NEB Q4H PRN vial 07/05/18 Bifidobacterium Infantis [Align] 4 mg PO DAILY cap 07/05/18 Doxycycline Hyclate [Vibramycin] 100 mg PO BID 10 Days cap 07/05/18 Levalbuterol Nebs [Xopenex NEBS] 1.25 mg NEB RTQ8 vial 07/05/18 Metoprolol Tartrate [Lopressor] 50 mg PO BID 60 Days tab 07/05/18 Ondansetron Inj [Zofran Inj] 4 mg IV Q6H PRN vial 07/05/18 levoFLOXacin [Levaquin] 250 mg PO Q24H 10 Days tab 07/05/18 Additional Instructions: please consult with hospice as per daughter's wishes and daughter is prepared to fill out DO NOT RESUSCITATE paperwork. Would consider a do not transfer order if this is in line with family's wishes.
[2018-07-15] MEDS ORDERED: PIPERACILLIN/TAZOBACTAM 2.25 GM VIAL IVPB ONE (14:29)
[2018-07-15] MEDS ORDERED: SODIUM CHLORIDE 0.9% 50ML 50 ML ONE (14:29)
--- NOTE | 2018-07-15 14:36 | CT ---
EXAM DESCRIPTION: CTA Chest CLINICAL HISTORY: 87 years Female, elevated ddimer and hypoxia COMPARISON: Radiograph of the chest dated 07/04/2018. TECHNIQUE: Contiguous thin section axial images were obtained from above the supraclavicular region to below the diaphragm level without the use of intravenous contrast. Sagittal and coronal reconstructions were reviewed. FINDINGS: A few hypodense nodules are identified in the left thyroid lobe. The supraclavicular regions appear normal. 8mm pretracheal lymph node is identified. No abnormally enlarged axillary, mediastinal or hilar lymphadenopathy is noted. No evidence of central or major vessel pulmonary embolus. Scarring is identified in the bilateral lung apices. No evidence of consolidation or groundglass opacities. Mild atelectasis is noted in the bilateral lung bases. Small right pleural effusion is noted. No evidence of left pleural effusion. No pneumothorax. The right and left atria are significantly enlarged in size. Reflux of contrast into the inferior vena cava is noted suggesting congestive heart failure. There is moderate atherosclerotic disease throughout the aorta. Limited evaluation of the upper abdomen demonstrates no gross abnormality. Degenerative changes are identified throughout the visualized spine. Compression deformities of T5 T8 and T10 vertebral bodies are noted. These are age indeterminate. IMPRESSION: 1. No evidence of central or major vessel pulmonary embolus. 2. Enlarged right and left atria with reflux of contrast into the inferior vena cava. Findings suggest congestive heart failure. 3. Age indeterminate compression deformities of T5, T8 and T10 vertebral bodies are noted. This exam was performed according to our departmental dose-optimization program, which includes automated exposure control, adjustment of the mA and/or kV according to patient size and/or use of iterative reconstruction technique. Electronically signed by: Jaspal Roberson MD 07/15/2018 2:34 PM [facility]
[2018-07-15 15:51] VITALS: BP 98/57; TEMP 98.2; O2SAT 96
== END 2018-07-15 15:35 ==
LOC: ER 12:10
DX: R09.02 Hypoxemia (principal); K21.9 Gastro-esophageal reflux disease without esophagitis; I48.91 Unspecified atrial fibrillation; I50.9 Heart failure, unspecified; Z86.73 Personal history of transient ischemic attack (TIA), and cerebral infarction without residual deficits; Z79.899 Other long term (current) drug therapy; Z79.82 Long term (current) use of aspirin
CPT/HCPCS: 36415; 36600; 70450; 71045; 71275; 80053; 82550; 82553; 82803; 82805; 83605; 83880; 84484; 85025; 85379; 87040; 93005; A4216; J2543